=== PATIENT | male | born 1955 | race Caucasian/White ===

== ENCOUNTER 2022-04-22 22:49 | Emergency (ER) | payer MEDICARE, SELFPAY ==
--- NOTE | ~2022-04-22 | CT_ITS ---
EXAMINATION: CT abdomen pelvis wo con DATE: 04/22/2022 23:45 INDICATION: Right-sided flank pain TECHNIQUE: Computed tomography (CT) of the abdomen and pelvis was performed without intravenous contr ast. The dose-length product was 1280.40 mGy-cm. Automated exposure control and iterative reconstruct ion technique were employed. COMPARISON: CT dated 07/01/2017 FINDINGS: Bibasilar dependent atelectasis. Large hiatal hernia. Heart size normal. There are calcifie d granulomas of the liver and spleen. The pancreas, adrenal glands are unremarkable. There are nonobs tructing bilateral renal stones. No ureteral stones or hydronephrosis. Nonobstructive bowel gas patte rn. Gallbladder is present. Normal appendix. No significant vascular abnormality. No lymphadenopathy. Gallbladder is present. No free air or free fluid. Colonic diverticulosis without evidence for diver ticulitis. IMPRESSION: 1. Nonobstructing bilateral nephrolithiasis. 2: Large hiatal hernia. Reviewed, dictated and finalized at location D.
[2022-04-22 22:52] VITALS: BP 134/79; PULSE 89; RESP 16; TEMP 36.3; O2SAT 98
[2022-04-22 23:11] VITALS: BP 157/68; PULSE 84; RESP 20; O2SAT 98
--- NOTE | 2022-04-22 23:27 | ED.ABDPAIN ---
HPI - Abdominal Pain General Chief Complaint: Abdominal Pain <ANANT Clarke Last Filed: 04/23/22 02:52> Stated Complaint: flank pain <Albania Hernadez PA-C - Last Filed: 04/23/22 02:52> Time Seen by Provider: 04/22/22 23:03 <ANANT Clarke Last Filed: 04/23/22 02:52> History of Present Illness HPI narrative: Patient is a 66-year-old male with a history of CKD and nephrolithiasis here for evaluation of right-sided low back pain for the past 6 weeks, worse over the past 2 days. He states the pain came on while he was at rest, is worse with positions, and is located in his right low back and does not radiate. States he has been working outside in the yard a lot. Denies relief after ibuprofen; he has not been taking this today but was told he is not supposed to take this due to his CKD. Reports some nausea today but no vomiting or abdominal pain. No changes to stools. Denies urinary symptoms, incontinence or retention of bowel or bladder, hematuria, fevers, chills, known injury to back. <ANANT Clarke Last Filed: 04/23/22 02:52> Related Data Home Medications: Home Medications Medication Instructions Recorded Confirmed alprazolam 0.5 mg tablet (Xanax) 0.5 mg PO DAILY 10/06/19 buspirone 10 mg tablet 10 mg PO BID 10/06/19 cholecalciferol (vitamin D3) 25 1,000 unit PO DAILY 10/06/19 mcg (1,000 unit) capsule fluoxetine 20 mg capsule (Prozac) 20 mg PO DAILY 10/06/19 fluticasone propionate 50 1 spray intranasal DAILY 10/06/19 mcg/actuation nasal spray,suspension (Flonase Allergy Relief) loratadine 10 mg tablet (Claritin) 10 mg PO DAILY 10/06/19 mirtazapine 15 mg tablet (Remeron) 15 mg PO DAILY 10/06/19 rabeprazole 20 mg tablet,delayed 20 mg PO DAILY 10/06/19 release (AcipHex) zolpidem 10 mg tablet (Ambien) 10 mg PO ONCE 10/06/19 <[place] Hernadez PA-C - Last Filed: 04/23/22 02:52> Allergies/Adverse Reactions: Allergies Allergy/AdvReac Type Severity Reaction Status Date / Time cefuroxime Allergy Unknown Unknown Verified 04/22/22 22:56 METOCLOPRAMIDE HCL Allergy Intermediate ANXIOUS Uncoded 04/22/22 22:56 CEFUROXIME AXETIL AdvReac Severe NAUSEA, Uncoded 04/22/22 22:56 DIARHEA <Albania Hernadez PA-C - Last Filed: 04/23/22 02:52> Review of Systems Review of Systems: Gen: Denies fevers or chills Eyes: Denies eye pain or visual change ENT: Denies congestion Respiratory: Denies shortness of breath or cough CV: Denies chest pain or palpitations GI: Reports nausea. Denies abdominal pain, emesis or diarrhea : denies burning, urgency, frequency or hematuria Musculoskeletal: Reports back pain. Neuro: Denies numbness, tingling, weakness or focal weakness Skin: Denies rash Except as documented, all other systems reviewed and negative <Al[place]ia Hernadez PA-C - Last Filed: 04/23/22 02:52> [facility] Past Medical History Medical History: Medical History Acute pain of left knee Anemia, unspecified Arm paresthesia, right Burning sensation of feet Chronic GERD Chronic kidney disease, stage III (moderate) Dependence on other enabling machines and devices Dietary counseling and surveillance (10/16/17) Elevated blood-pressure reading without diagnosis of hypertension Enlarged prostate with lower urinary tract symptoms (LUTS) Essential hypertension Family history of colon cancer LONNY (generalized anxiety disorder) Hiatal hernia History of kidney stones Hy 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 Hyperlipidemia Hypogonadism in male Itching Left knee tendonitis Localized osteoarthritis of left knee Low TSH level Memory difficulties Mid back pain Mild episode of recurrent major depressive disorder Need for hepatitis C screening test Neuropathy involving both lower extremities Numbness OAB (overactive bladder) Obesity (BMI 30.0-34.9) Polyosteoarthritis, unspecif
[2022-04-22] MEDS: ONDANSETRON INJ 4 MG/2 ML VIAL IV PUSH (23:31)
[2022-04-22 23:40] LABS: Basophils Absolute Auto 0.1 K/mm3 (0.0-0.1); Basophils Percent Auto 0.8 % (0.2-1.2); Eosinophils Absolute Auto 0.3 K/mm3 (0-0.3); Eosinophils Percent Auto 4.2 % (0-4.4); Hematocrit 40.7 % (42.0-52.0); Hemoglobin 13.2 g/dL (14.0-18.0); Immature Granulocyte Absolute 0.02 K/mm3 (0.00-0.031); Immature Granulocyte Percent A 0.3 % (0-0.5); Lymphocytes Absolute Auto 1.91 K/mm3 (0.9-3.2); Lymphocytes Percent Auto 28.9 % (18.3-44.2); Mean Corpuscular HGB Conc 32.4 g/dl (32-36); Mean Corpuscular Hemoglobin 30.7 pg (26-34); Mean Corpuscular Volume 94.7 fl (80-100); Mean Platelet Volume 9.9 fl (7.4-10.4); Monocytes Absolute Auto 0.6 K/mm3 (0.1-0.6); Monocytes Percent Auto 9.1 % (2.6-8.5); Neutrophils Absolute Auto 3.8 K/mm3 (1.3-6.7); Neutrophils Percent Auto 56.7 % (45.5-73.1); Platelet Count Result 159 k/mm3 (150-375); White Blood Count 6.6 K/mm3 (4.5-10.0)
[2022-04-22 23:56] LABS: Alanine Aminotransferase 19 U/L (6-50); Albumin Level 3.8 g/dL (3.5-5.1); Alkaline Phosphatase 48 U/L (38-126); Anion Gap 4 mmol/L (8-16); Aspartate Amino Transferase 21 U/L (17-59); Bilirubin,Total 0.3 mg/dL (0.2-1.3); Blood Urea Nitrogen 25 mg/dL (9-20); Calcium 8.6 mg/dL (8.4-10.2); Carbon Dioxide 26 mmol/L (22-30); Chloride 109 mmol/L (98-107); Estimated CRCL calculation 40 ml/min; Estimated Glomerular Filt Rate 34; Glucose 139 mg/dL (65-110); Potassium 4.1 mmol/L (3.4-5.0); Sodium 139 mmol/L (137-145)
[2022-04-23] MEDS: ACETAMINOPHEN 500 MG TABLET 1000 MG PO (00:08)
[2022-04-23] MEDS: SODIUM CHLORIDE 0.9% IV 1,000 ML 999 ML IV CONT (00:08)
[2022-04-23] MEDS: LIDOCAINE 5% PATCH 1 PATCH TRANSDERM (00:13)
[2022-04-23 00:57] LABS: Appearance Urine Clear (Clear); Bilirubin Urine Negative (Negative); Blood Urine Negative (Negative); Color Urine Yellow (Yellow); Glucose Urine UA Negative (Negative); Ketones Urine Trace mg/dL (Negative); Leukocyte Esterase Ur Negative LEU/UL (Negative); Nitrate Urine Negative (Negative); Protein Urine Negative (Negative); Specific Grav Ur >= 1.030 (1.001-1.035); Urobilinogen Urine 0.2 mg/dL (<2.0); pH Urine 5.5 (5.0-9.0)
[2022-04-23 00:59] LABS: Mucus Urine Rare /lpf; RBC Urine 0-2 /hpf (0-2); WBC Urine 0-3 /hpf
[2022-04-23 01:00] LABS: Add Urine Microscopic? YES
[2022-04-23 01:35] VITALS: BP 139/84; PULSE 82; RESP 16; O2SAT 98
== END 2022-04-23 01:43 | disposition home or self-care (01) ==
PROVIDERS: Physician Assistant; Emergency Provider Emergency Medicine
DX: M54.50 Low back pain, unspecified (principal); K57.30 Diverticulosis of large intestine without perforation or abscess without bleeding; D64.9 Anemia, unspecified; K21.9 Gastro-esophageal reflux disease without esophagitis; I12.9 Hypertensive chronic kidney disease with stage 1 through stage 4 chronic kidney disease, or unspecified chronic kidney disease; N18.30 Chronic kidney disease, stage 3 unspecified; F41.9 Anxiety disorder, unspecified; Z87.442 Personal history of urinary calculi; M19.90 Unspecified osteoarthritis, unspecified site; G62.9 Polyneuropathy, unspecified
CPT/HCPCS: 36415; 74176; 80053; 81001; 85025; 96361; 96374; 99284; A9270; J2405; J7030

== ENCOUNTER 2022-05-02 10:07 | Outpatient (CLI) | payer MEDICARE, SELFPAY ==
[2022-05-02 10:51] LABS: Anion Gap 6 mmol/L (8-16); Blood Urea Nitrogen 22 mg/dL (9-20); Calcium 9.3 mg/dL (8.4-10.2); Carbon Dioxide 28 mmol/L (22-30); Chloride 104 mmol/L (98-107); Estimated Glomerular Filt Rate 51; Glucose 111 mg/dL (65-110); Potassium 4.6 mmol/L (3.4-5.0); Sodium 138 mmol/L (137-145)
== END 2022-05-02 10:08 | disposition home or self-care (01) ==
PROVIDERS: PCP Family Medicine; Visit Provider Physician Assistant
DX: N18.9 Chronic kidney disease, unspecified (principal)
CPT/HCPCS: 36415; 80048

== ENCOUNTER 2022-10-25 07:21 | Outpatient (CLI) | payer MEDICARE, SELFPAY ==
[2022-10-25 09:03] LABS: Prostate Specific Antigen 1.1 ng/mL (< OR = 4.0)
[2022-10-30 17:28] LABS: Testosterone Free 54.7 pg/mL (35.0-155.0); Testosterone Total 243 ng/dL (250-1100)
== END 2022-10-25 07:22 | disposition home or self-care (01) ==
PROVIDERS: PCP Family Medicine; Visit Provider Family Medicine
DX: R35.1 Nocturia (principal); R79.89 Other specified abnormal findings of blood chemistry
CPT/HCPCS: 36415; 84153; 84402; 84403

== ENCOUNTER 2022-12-27 08:11 | Outpatient (CLI) | payer MEDICARE, SELFPAY ==
[2022-12-27 09:31] LABS: Basophils Percent Auto 0.6 % (0.2-1.2); Eosinophils Absolute Auto 0.3 K/mm3 (0-0.3); Eosinophils Percent Auto 4.1 % (0-4.4); Hematocrit 46.4 % (42.0-52.0); Hemoglobin 15.5 g/dL (14.0-18.0); Immature Granulocyte Absolute 0.02 K/mm3 (0.00-0.031); Immature Granulocyte Percent A 0.3 % (0-0.5); Lymphocytes Absolute Auto 2.02 K/mm3 (0.9-3.2); Lymphocytes Percent Auto 31.5 % (18.3-44.2); Mean Corpuscular HGB Conc 33.4 g/dl (32-36); Mean Corpuscular Hemoglobin 31.6 pg (26-34); Mean Corpuscular Volume 94.5 fl (80-100); Monocytes Absolute Auto 0.5 K/mm3 (0.1-0.6); Monocytes Percent Auto 8.1 % (2.6-8.5); Neutrophils Absolute Auto 3.6 K/mm3 (1.3-6.7); Neutrophils Percent Auto 55.4 % (45.5-73.1); Platelet Count Result 174 k/mm3 (150-375); Red Blood Count 4.91 M/mm3 (4.6-6.20); Red Cell Distribution Width 13.8 % (11.5-14.5); White Blood Count 6.4 K/mm3 (4.5-10.0)
[2022-12-27 09:41] LABS: Alanine Aminotransferase 29 U/L (6-50); Albumin Level 4.6 g/dL (3.5-5.1); Alkaline Phosphatase 59 U/L (38-126); Anion Gap 4 mmol/L (8-16); Aspartate Amino Transferase 24 U/L (17-59); Bilirubin,Total 0.7 mg/dL (0.2-1.3); Blood Urea Nitrogen 23 mg/dL (9-20); Calcium 9.2 mg/dL (8.4-10.2); Carbon Dioxide 28 mmol/L (22-30); Chloride 101 mmol/L (98-107); Cholesterol 187 mg/dL (0-200); Estimated Glomerular Filt Rate 41; Glucose 99 mg/dL (65-110); HDL Direct 49 mg/dL; Potassium 4.2 mmol/L (3.4-5.0); Sodium 133 mmol/L (137-145); Triglycerides 99 mg/dL (<150)
[2022-12-27 09:43] LABS: Appearance Urine Clear (Clear); Bilirubin Urine Negative (Negative); Blood Urine Negative (Negative); Color Urine Yellow (Yellow); Glucose Urine UA Negative (Negative); Ketones Urine Negative (Negative); Leukocyte Esterase Ur Negative LEU/UL (NEGATIVE); Nitrate Urine Negative (Negative); Protein Urine Negative (Negative); Specific Grav Ur 1.025 (1.001-1.035); Urobilinogen Urine 0.2 mg/dL (<2.0)
[2022-12-27 09:53] LABS: LDL Cholesterol Direct 98 mg/dL
[2022-12-27 10:22] LABS: Add Urine Microscopic? NO
[2023-01-02 11:00] LABS: Testosterone Total 259 ng/dL (250-1100)
== END 2022-12-27 08:12 | disposition home or self-care (01) ==
LOC: ANHLAB 08:12
PROVIDERS: PCP Family Medicine; Visit Provider Physician Assistant
DX: R68.83 Chills (without fever) (principal); R61 Generalized hyperhidrosis; R23.2 Flushing; R79.89 Other specified abnormal findings of blood chemistry; N18.9 Chronic kidney disease, unspecified; F51.04 Psychophysiologic insomnia; J31.0 Chronic rhinitis; R53.83 Other fatigue; G47.33 Obstructive sleep apnea (adult) (pediatric); Z99.89 Dependence on other enabling machines and devices
CPT/HCPCS: 36415; 80053; 80061; 81003; 84403; 84443; 85025

== ENCOUNTER 2023-04-13 18:36 | Emergency (ER) | payer MEDICARE, SELFPAY ==
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
[2023-04-13 18:39] VITALS: BP 133/79; PULSE 90; RESP 16; TEMP 36.6; O2SAT 98
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
--- NOTE | 2023-04-13 19:31 | PC.NURSE ---
1909 Assumed pt care from Phyllis Wilson RN
[2023-04-13] MEDS: ACETAMINOPHEN 500 MG TABLET 1000 MG PO (19:44)
[2023-04-13] MEDS: traMADol HCL (*CRX) 50 MG TABLET PO (20:36)
== END 2023-04-13 22:36 | disposition home or self-care (01) ==
PROVIDERS: Emergency Provider General Practice; PCP Family Medicine
DX: S02.2XXA Fracture of nasal bones, initial encounter for closed fracture (principal); I12.9 Hypertensive chronic kidney disease with stage 1 through stage 4 chronic kidney disease, or unspecified chronic kidney disease; N18.30 Chronic kidney disease, stage 3 unspecified; N40.1 Benign prostatic hyperplasia with lower urinary tract symptoms; N32.81 Overactive bladder; E78.00 Pure hypercholesterolemia, unspecified; M17.12 Unilateral primary osteoarthritis, left knee; E66.9 Obesity, unspecified; Z68.34 Body mass index [BMI] 34.0-34.9, adult; F41.1 Generalized anxiety disorder; F33.9 Major depressive disorder, recurrent, unspecified; Z86.2 Personal history of diseases of the blood and blood-forming organs and certain disorders involving the immune mechanism; Z87.442 Personal history of urinary calculi; Z87.891 Personal history of nicotine dependence; M47.812 Spondylosis without myelopathy or radiculopathy, cervical region; W20.8XXA Other cause of strike by thrown, projected or falling object, initial encounter
CPT/HCPCS: 70450; 70486; 72125; 99284; A9270

== ENCOUNTER 2023-07-14 10:23 | Emergency (ER) | payer MEDICARE, SELFPAY ==
--- NOTE | ~2023-07-14 | CT_ITS ---
EXAMINATION: CT abdomen pelvis w con DATE: 07/14/2023 12:46 INDICATION: Left lower quadrant abdominal pain. TECHNIQUE: Computed tomography (CT) of the abdomen and pelvis was performed with 100 mL Omnipaque-350 intravenous contrast. Automated exposure control and iterative reconstruction technique were employe d. The dose-length product was 1206.94 mGy-cm. COMPARISON: 04/22/2022 FINDINGS: Mild atelectasis in the bilateral lower lobes along the margins of a moderate-sized sliding-type hiat al hernia. Calcified right hilar lymph nodes along with a few small calcified hepatic and splenic nod ules consistent with old granulomatous disease. Heart size is normal. Gallbladder and bilateral adren al glands are normal. Punctate dystrophic calcification at the tail the pancreas, likely sequela of c hronic pancreatitis. 1 cm cysts at the upper pole the right kidney and lower pole the left kidney. Bi lateral nonobstructing nephrolithiasis with single 2 mm stone at the upper pole of the right kidney a nd 1 mm and 2 mm stones at an upper pole calyx of the left kidney. No hydronephrosis. There is modera te colonic diverticulosis with a sigmoid and descending colon predominance. There is no adjacent infl ammatory change to suggest diverticulitis. Small bowel and appendix are normal. Bladder is normal. No free intraperitoneal gas or fluid. No pathologically enlarged abdominal or pelvic lymphadenopathy. T here are bridging osteophytes at multiple levels in the spine, consistent with diffuse idiopathic ske letal hyperostosis (DISH). IMPRESSION: 1. Nonobstructing bilateral nephrolithiasis. 2. Moderate-sized hiatal hernia. 3. Diverticulosis. Reviewed, dictated and finalized at location A.
--- NOTE | ~2023-07-14 | US_ITS ---
EXAMINATION: US abdomen limited DATE: 07/14/2023 14:14 INDICATION: Abnormal liver function tests. TECHNIQUE: Multiple grayscale and Doppler ultrasound images of the abdomen were obtained. COMPARISON: CT abdomen and pelvis 07/14/2023 FINDINGS: The pancreas is obscured by bowel gas. The liver is normal without focal lesion. No liver s urface nodularity. There is normal flow in main portal vein. The gallbladder is contracted. No gallst ones or sonographic Juarez sign. The common duct is normal and measures 4 mm. IMPRESSION: 1. No etiology for abnormal liver function tests. Reviewed, dictated and finalized at location E.
[2023-07-14 11:05] VITALS: BP 130/98; PULSE 95; RESP 16; TEMP 37.1; O2SAT 98
[2023-07-14 11:06] VITALS: BP 151/101; PULSE 78; RESP 16; O2SAT 96
[2023-07-14 11:12] LABS: Basophils Absolute Auto 0.1 K/mm3 (0.0-0.1); Basophils Percent Auto 0.7 % (0.2-1.2); Eosinophils Absolute Auto 0.5 K/mm3 (0-0.3); Eosinophils Percent Auto 6.6 % (0-4.4); Hematocrit 48.5 % (42.0-52.0); Hemoglobin 15.7 g/dL (14.0-18.0); Immature Granulocyte Absolute 0.03 K/mm3 (0.00-0.031); Immature Granulocyte Percent A 0.4 % (0-0.5); Immature Platelet Fraction Pct 4.7 % (0.9-11.2); Lymphocytes Absolute Auto 1.27 K/mm3 (0.9-3.2); Lymphocytes Percent Auto 17.9 % (18.3-44.2); Mean Corpuscular HGB Conc 32.4 g/dl (32-36); Mean Corpuscular Volume 95.7 fl (80-100); Mean Platelet Volume 10.2 fl (7.4-10.4); Monocytes Absolute Auto 0.5 K/mm3 (0.1-0.6); Monocytes Percent Auto 7.5 % (2.6-8.5); Neutrophils Absolute Auto 4.8 K/mm3 (1.3-6.7); Neutrophils Percent Auto 66.9 % (45.5-73.1); Platelet Count Result 138 k/mm3 (150-375); Red Blood Count 5.07 M/mm3 (4.6-6.20); Red Cell Distribution Width 14.9 % (11.5-14.5); White Blood Count 7.1 K/mm3 (4.5-10.0)
[2023-07-14 11:21] LABS: Alanine Aminotransferase 645 U/L (6-50); Albumin Level 4.5 g/dL (3.5-5.1); Alkaline Phosphatase 119 U/L (38-126); Anion Gap 7 mmol/L (8-16); Aspartate Amino Transferase 301 U/L (17-59); Bilirubin,Total 5.4 mg/dL (0.2-1.3); Blood Urea Nitrogen 17 mg/dL (9-20); Calcium 9.3 mg/dL (8.4-10.2); Carbon Dioxide 26 mmol/L (22-30); Chloride 103 mmol/L (98-107); Estimated Glomerular Filt Rate 51; Glucose 137 mg/dL (65-110); Lipase 93 U/L (23-300); Sodium 136 mmol/L (137-145)
[2023-07-14 11:33] VITALS: BP 163/95; PULSE 80; RESP 16; TEMP 36.8; O2SAT 98
--- NOTE | 2023-07-14 11:38 | ED.ABDPAIN ---
HPI - Abdominal Pain General Chief Complaint: Abdominal Pain Stated Complaint: pt states unwell all over, nausea, L abd pain Time Seen by Provider: 07/14/23 11:23 History of Present Illness HPI narrative: Pt presents with intermittent LLQ abdominal pain for 3 months mostly after eating. Pt also was recently treated for sinus infection with augmentin and prednisone. Pt complains of itchy skin and feeling dry and had abnormal tsh from outpatient labs. Related Data Home Medications Medication Instructions Recorded Confirmed cholecalciferol (vitamin D3) 25 1,000 unit PO DAILY 10/06/19 07/01/23 mcg (1,000 unit) capsule cetirizine 10 mg capsule (All Day 10 mg PO DAILY PRN 04/26/22 07/01/23 Allergy (cetirizine)) cyclosporine 0.05 % eye drops in a 1 drp EACH EYE Q12H 04/26/22 07/01/23 dropperette Allergies Allergy/AdvReac Type Severity Reaction Status Date / Time cefuroxime Allergy Unknown Unknown Verified 07/01/23 11:03 metoclopramide [From Reglan] AdvReac Unknown Verified 07/01/23 11:03 METOCLOPRAMIDE HCL Allergy Intermediate ANXIOUS Uncoded 07/01/23 11:03 CEFUROXIME AXETIL AdvReac Severe NAUSEA, Uncoded 07/01/23 11:03 DIARHEA Review of Systems Review of Systems: All systems reviewed & are unremarkable except as noted in HPI and below PMFSH Past Medical History Medical History Acute pain of left knee Anemia, unspecified Arm paresthesia, right Burning sensation of feet Chronic GERD Chronic kidney disease, stage III (moderate) Dependence on other enabling machines and devices Dietary counseling and surveillance (10/16/17) Elevated blood-pressure reading without diagnosis of hypertension Enlarged prostate with lower urinary tract symptoms (LUTS) Essential hypertension Family history of colon cancer LONNY (generalized anxiety disorder) Hiatal hernia History of kidney stones Hy 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 Hyperlipidemia Hypogonadism in male Itching Left knee tendonitis Localized osteoarthritis of left knee Low TSH level Memory difficulties Mid back pain Mild episode of recurrent major depressive disorder Need for hepatitis C screening test Neuropathy involving both lower extremities Numbness OAB (overactive bladder) Obesity (BMI 30.0-34.9) Polyosteoarthritis, unspecified Post-nasal drip Pre-op exam Primary osteoarthritis of left knee Pure hypercholesterolemia Right-sided low back pain without sciatica Tendonitis of left rotator cuff URI, acute Varicose veins of both lower extremities Wellness examination Family History Family History Mother Family history of muscular dystrophy Father Carcinoma of colon Sibling Family history of diabetes mellitus in first degree relative Family history of coronary artery disease Other Diabetes mellitus Hypertension Social History Social History Smoking status: Former smoker Smoking end date: 11/17/77 Alcohol intake: never Exam Const: General: healthy appearing Nutritional Appearance: well nourished Orientation/consciousness: patient oriented x3 Limitations: no limitations Eyes: Pupils: Equal, round and reactive pupils present EOM: EOMs intact bilaterally Neck: Neck: normal visual inspection Chest: Chest palpation & inspection: normal inspection of the chest Resp: Effort & Inspection: normal respiratory effort Auscultation: clear to auscultation bilaterally Cardio: Rate: regular rate Rhythm: regular rhythm GI: GI Palp: Yes Soft to palpation and Yes Tenderness to palpation present (GI) (mild llq) Auscultation: normal bowel sounds Skin: General skin exam: normal color Rashes: no rashes Wounds: no wounds Neuro: General: patient oriented x3, moves all extremities, no meningeal signs, no focal motor deficits and CN's II-XI intact bilaterally Cranial nerves: Yes
[2023-07-14] MEDS: SODIUM CHLORIDE 0.9% IV 1,000 ML 999 ML IV CONT (11:57)
[2023-07-14 12:14] LABS: Prothrombin Time 13.1 Seconds (11.1-14.7)
[2023-07-14 13:03] LABS: Appearance Urine Clear (Clear); Bilirubin Urine 1+ (Negative); Blood Urine Negative (Negative); Color Urine Dark Yellow (Yellow); Glucose Urine UA Negative (Negative); Ketones Urine Negative (Negative); Leukocyte Esterase Ur Negative LEU/UL (Negative); Nitrate Urine Negative (Negative); Protein Urine Negative (Negative); Specific Grav Ur 1.034 (1.001-1.035); pH Urine 6.5 (5.0-9.0)
[2023-07-14 13:18] LABS: Add Urine Microscopic? NO
[2023-07-14] MEDS: ONDANSETRON INJ 4 MG/2 ML VIAL IV PUSH (13:27)
[2023-07-14 13:30] VITALS: BP 150/78; BP 154/88; PULSE 76; PULSE 90; RESP 16; O2SAT 98
[2023-07-14 14:30] VITALS: BP 152/90; PULSE 90; RESP 16; TEMP 36.6; O2SAT 98
[2023-07-14 15:15] VITALS: BP 154/88; PULSE 88; RESP 16; TEMP 36.7; O2SAT 98
== END 2023-07-14 15:38 | disposition home or self-care (01) ==
PROVIDERS: Physician Assistant; Emergency Provider Emergency Medicine; PCP Family Medicine
DX: R74.01 Elevation of levels of liver transaminase levels (principal); I12.9 Hypertensive chronic kidney disease with stage 1 through stage 4 chronic kidney disease, or unspecified chronic kidney disease; N18.30 Chronic kidney disease, stage 3 unspecified; E78.5 Hyperlipidemia, unspecified; Z87.891 Personal history of nicotine dependence
CPT/HCPCS: 36415; 74177; 76705; 80053; 81003; 83690; 84443; 85025; 85055; 85610; 96361; 96374; 99284; J2405; J7030; Q9967

== ENCOUNTER 2023-07-17 14:08 | Outpatient (CLI) | payer MEDICARE, SELFPAY ==
[2023-07-17 15:14] LABS: Basophils Absolute Auto 0.1 K/mm3 (0.0-0.1); Basophils Percent Auto 0.8 % (0.2-1.2); Eosinophils Absolute Auto 0.5 K/mm3 (0-0.3); Eosinophils Percent Auto 7.9 % (0-4.4); Hematocrit 45.4 % (42.0-52.0); Hemoglobin 14.8 g/dL (14.0-18.0); Immature Granulocyte Absolute 0.04 K/mm3 (0.00-0.031); Immature Granulocyte Percent A 0.6 % (0-0.5); Immature Reticulocyte Fraction 20.7 % (3.0-15.9); Lymphocytes Absolute Auto 1.46 K/mm3 (0.9-3.2); Lymphocytes Percent Auto 23.4 % (18.3-44.2); Mean Corpuscular HGB Conc 32.6 g/dl (32-36); Mean Corpuscular Hemoglobin 31.2 pg (26-34); Mean Corpuscular Volume 95.8 fl (80-100); Mean Platelet Volume 10.5 fl (7.4-10.4); Monocytes Absolute Auto 0.7 K/mm3 (0.1-0.6); Monocytes Percent Auto 10.6 % (2.6-8.5); Neutrophils Absolute Auto 3.5 K/mm3 (1.3-6.7); Neutrophils Percent Auto 56.7 % (45.5-73.1); Platelet Count Result 138 k/mm3 (150-375); Red Blood Count 4.74 M/mm3 (4.6-6.20); Red Cell Distribution Width 15.6 % (11.5-14.5); Reticulocyte Hemoglobin Conten 34.1 pg (28.2-35.7); Reticulocyte Percent 1.69 % (0.7-4.3); Reticulocytes Absolute 0.08 M/mm3 (0.02-0.1); White Blood Count 6.2 K/mm3 (4.5-10.0)
[2023-07-17 16:20] LABS: Hepatitis B Surface Antigen Negative (Negative)
[2023-07-17 16:25] LABS: HAV RESULT Negative (Negative); Hepatitis B Core IgM Result Negative (Negative)
[2023-07-17 16:37] LABS: Hepatitis C Virus Antibody Negative (Negative)
[2023-07-17 17:09] LABS: Iron 139 ug/dL (49-181)
[2023-07-17 17:11] LABS: Alanine Aminotransferase 623 U/L (6-50); Albumin Level 4.2 g/dL (3.5-5.1); Alkaline Phosphatase 125 U/L (38-126); Anion Gap 5 mmol/L (8-16); Aspartate Amino Transferase 317 U/L (17-59); Bilirubin Direct 2.7 mg/dL (0-0.3); Bilirubin,Total 6.9 mg/dL (0.2-1.3); Blood Urea Nitrogen 18 mg/dL (9-20); Calcium 9.2 mg/dL (8.4-10.2); Carbon Dioxide 31 mmol/L (22-30); Chloride 102 mmol/L (98-107); Estimated Glomerular Filt Rate 47; Glucose 103 mg/dL (65-110); Lactate Dehydrogenase 332 U/L (120-246); Sodium 138 mmol/L (137-145)
[2023-07-17 17:21] LABS: Percent Iron Saturation 42 % (20-50)
[2023-07-22 10:10] LABS: Haptoglobin 124 mg/dL (43-212)
== END 2023-07-17 14:09 | disposition home or self-care (01) ==
PROVIDERS: PCP Family Medicine; Visit Provider Physician Assistant
DX: R17 Unspecified jaundice (principal); R79.89 Other specified abnormal findings of blood chemistry
CPT/HCPCS: 36415; 80048; 80074; 80076; 82728; 83010; 83540; 83550; 83615; 85025; 85046; 85055; 86038; 86039

== ENCOUNTER 2023-07-31 15:09 | Outpatient (CLI) | payer MEDICARE, SELFPAY ==
[2023-07-31 16:58] LABS: Alanine Aminotransferase 190 U/L (6-50); Albumin Level 4.1 g/dL (3.5-5.1); Alkaline Phosphatase 97 U/L (38-126); Anion Gap 8 mmol/L (8-16); Aspartate Amino Transferase 73 U/L (17-59); Bilirubin,Total 1.3 mg/dL (0.2-1.3); Blood Urea Nitrogen 25 mg/dL (9-20); Calcium 9.3 mg/dL (8.4-10.2); Carbon Dioxide 25 mmol/L (22-30); Chloride 107 mmol/L (98-107); Estimated Glomerular Filt Rate 47; Glucose 129 mg/dL (65-110); Potassium 4.5 mmol/L (3.4-5.0); Sodium 140 mmol/L (137-145)
== END 2023-07-31 15:10 | disposition home or self-care (01) ==
PROVIDERS: PCP Family Medicine; Visit Provider Physician Assistant
DX: R79.89 Other specified abnormal findings of blood chemistry (principal)
CPT/HCPCS: 36415; 80048; 80076

== ENCOUNTER 2023-08-29 09:13 | Outpatient (CLI) | payer MEDICARE, SELFPAY ==
[2023-08-29 10:03] LABS: Alanine Aminotransferase 36 U/L (6-50); Albumin Level 4.2 g/dL (3.5-5.1); Alkaline Phosphatase 53 U/L (38-126); Anion Gap 6 mmol/L (8-16); Aspartate Amino Transferase 30 U/L (17-59); Bilirubin,Total 0.8 mg/dL (0.2-1.3); Blood Urea Nitrogen 20 mg/dL (9-20); Calcium 9.2 mg/dL (8.4-10.2); Carbon Dioxide 27 mmol/L (22-30); Chloride 105 mmol/L (98-107); Estimated Glomerular Filt Rate 47; Glucose 135 mg/dL (65-110); Potassium 3.8 mmol/L (3.4-5.0); Sodium 138 mmol/L (137-145)
== END 2023-08-29 09:14 | disposition home or self-care (01) ==
LOC: ANHLAB 09:14
PROVIDERS: PCP Family Medicine; Visit Provider Physician Assistant
DX: R74.01 Elevation of levels of liver transaminase levels (principal)
CPT/HCPCS: 36415; 80053

== ENCOUNTER → 2023-11-14 14:57 | Outpatient (CLI) | payer MEDICARE, SELFPAY ==
--- NOTE | ~2023-11-14 | XR_ITS ---
EXAMINATION: XR clavicle LT INDICATION: Left shoulder pain TECHNIQUE: Two views of the left shoulder are obtained. COMPARISON: None available FINDINGS: Bone alignment is normal. There is no fracture. There is mild osteoarthritis of the acromio clavicular and glenohumeral joints. IMPRESSION: 1. No acute osseous abnormality. Reviewed, dictated and finalized at location B. DESIGNER
== END ==
PROVIDERS: PCP Family Medicine; Visit Provider Physician Assistant
DX: M89.8X1 Other specified disorders of bone, shoulder (principal)
CPT/HCPCS: 73000

== ENCOUNTER 2023-12-22 12:08 | Outpatient (CLI) | payer MEDICARE, SELFPAY ==
--- NOTE | ~2023-12-22 | CT_ITS ---
EXAMINATION: CT abdomen pelvis w con DATE: 12/22/2023 12:33 INDICATION: Diarrhea, unspecified. TECHNIQUE: Computed tomography (CT) of the abdomen and pelvis was performed with 100 mL Omnipaque 350 intravenous contrast. Automated exposure control and iterative reconstruction technique were employe d. The dose-length product was 1200.05 mGy-cm. COMPARISON: CT abdomen and pelvis 07/14/2023 FINDINGS: The visualized portions of the lung bases demonstrate mild atelectasis. No pleural effusion . The heart size is normal. No pericardial effusion. There is a moderate-sized sliding hiatal hernia. There are likely changes of fundoplication of the stomach. The liver, gallbladder, and pancreas are normal. Calcifications in the spleen are consistent with old granulomatous disease. The adrenal gland s are normal. There is cortical thinning of the kidneys. There is an 11 mm cyst in right kidney. Ther e is a 3 mm stone in right kidney. There are 3 stones in left kidney measuring up to 3 mm. There is a 12 mm cyst in left kidney. There is diverticulosis of the colon without evidence of diverticulitis. There are no dilated loops of bowel. The appendix is normal. There are no pathologically enlarged lym ph nodes. There is no free intraperitoneal fluid. There is moderate lumbar spondylosis. There are alexandru dging endplate osteophytes at multiple levels in the spine, consistent with diffuse idiopathic skelet al hyperostosis (DISH). IMPRESSION: 1. Moderate-sized sliding hiatal hernia. Likely changes of fundoplication of the stomach. Reviewed, dictated and finalized at location E. IC ADDRESS SYSTEM OPERATOR IMPRESSION: 1. Moderate-sized sliding hiatal hernia. Likely changes of fundoplication of th e stomach.
[2023-12-22 12:29] LABS: Estimated Glomerular Filt Rate 41
[2023-12-22 13:13] LABS: Basophils Percent Auto 0.5 % (0.2-1.2); Eosinophils Absolute Auto 0.2 K/mm3 (0-0.3); Eosinophils Percent Auto 2.8 % (0-4.4); Hematocrit 46.9 % (42.0-52.0); Hemoglobin 15.4 g/dL (14.0-18.0); Immature Granulocyte Absolute 0.02 K/mm3 (0.00-0.031); Immature Granulocyte Percent A 0.3 % (0-0.5); Lymphocytes Absolute Auto 1.64 K/mm3 (0.9-3.2); Lymphocytes Percent Auto 25.7 % (18.3-44.2); Mean Corpuscular HGB Conc 32.8 g/dl (32-36); Mean Corpuscular Hemoglobin 30.6 pg (26-34); Mean Corpuscular Volume 93.2 fl (80-100); Mean Platelet Volume 9.7 fl (7.4-10.4); Monocytes Absolute Auto 0.7 K/mm3 (0.1-0.6); Monocytes Percent Auto 11.3 % (2.6-8.5); Neutrophils Absolute Auto 3.8 K/mm3 (1.3-6.7); Neutrophils Percent Auto 59.4 % (45.5-73.1); Platelet Count Result 150 k/mm3 (150-375); Red Blood Count 5.03 M/mm3 (4.6-6.20); Red Cell Distribution Width 13.6 % (11.5-14.5); White Blood Count 6.4 K/mm3 (4.5-10.0)
[2023-12-22 13:28] LABS: Alanine Aminotransferase 23 U/L (6-50); Alkaline Phosphatase 46 U/L (38-126); Anion Gap 7 mmol/L (8-16); Aspartate Amino Transferase 20 U/L (17-59); Bilirubin,Total 0.8 mg/dL (0.2-1.3); Blood Urea Nitrogen 22 mg/dL (9-20); Calcium 9.5 mg/dL (8.4-10.2); Carbon Dioxide 26 mmol/L (22-30); Chloride 103 mmol/L (98-107); Estimated Glomerular Filt Rate 47; Glucose 79 mg/dL (65-110); Sodium 136 mmol/L (137-145)
== END 2023-12-22 12:09 | disposition home or self-care (01) ==
LOC: ANHIMG 12:12
PROVIDERS: PCP Family Medicine; Visit Provider Physician Assistant
DX: R19.7 Diarrhea, unspecified (principal); R10.32 Left lower quadrant pain; G47.33 Obstructive sleep apnea (adult) (pediatric); Z99.89 Dependence on other enabling machines and devices; K44.9 Diaphragmatic hernia without obstruction or gangrene
CPT/HCPCS: 74177; 80053; 85025; 87045; 87427; 87449; 89055; Q9967

== ENCOUNTER 2023-12-22 15:09 | Outpatient (CLI) | payer MEDICARE, SELFPAY | END 2023-12-22 15:10 | disposition home or self-care (01) | LOC: ANHLAB 15:11 | PROVIDERS: PCP Family Medicine; Visit Provider Physician Assistant | DX: R19.7 Diarrhea, unspecified (principal); R10.32 Left lower quadrant pain | CPT/HCPCS: 87045; 87427; 87449; 89055 ==

== ENCOUNTER 2024-01-28 08:30 | Outpatient (CLI) | payer MEDICARE, SELFPAY ==
--- NOTE | ~2024-01-28 | XR_ITS ---
EXAMINATION: XR barium swallow modified DATE: 01/28/2024 09:10 INDICATION: Oropharyngeal dysphagia. TECHNIQUE: The patient was given barium-containing material of multiple consistencies to swallow by t bill speech pathologist while I performed fluoroscopy. Fluoroscopy exposure time was 0.8 minutes. The n umber of fluoroscopy images saved to the PACS was 1. Dose-area product was 0.852 Gy-cm^2. FINDINGS: The oral stage, pharyngeal stage, and cervical/esophageal stage of the swallow are normal. IMPRESSION: 1. Normal modified barium swallow. 2. Please refer to the speech therapy report for recommendations. Reviewed, dictated and finalized at location A.
--- NOTE | 2024-01-28 10:06 | REHSTMBS ---
Assessment and note entered by Shayla Edwards, NATIONAL SALES CONSULTANT Modified Barium Swallow Evaluation Feeding Type Recommended Oral Food Consistency Regular, Level 7 Liquid Consistency Thin (0) ST Clinical Summary MODIFIED BARIUM SWALLOW Patient was seen for an outpatient Modified Barium Swallow study at the request of his care provider. Patient reports a history of victorino fundoplication in the ' secondary to reflux, and a current hiatal hernia. He stated that his swallowing feels different for the past two years, that he can hear and feel his swallow and he pointed to the left lower neck area. He denied coughing or choking when eating. Patient was viewed in the lateral position to the level of C5/C6. Patient was presented with uncontrolled thin liquid contrast medium per cup, pudding mixed with semi-solid contrast medium per spoon, and then cracker pieces and fruit pieces, both coated with the semi-solid mixture. Patient elicited quick swallows with no evidence of penetration or aspiration and no significant pharyngeal residue remaining in between or after the swallows. Results suggest the patient's swallowing skills are within normal limits. No further recommendations are made at this time other than patient is referred back to his doctor for further assessment of his complaints. Thank you for this referral.
== END 2024-01-28 08:31 | disposition home or self-care (01) ==
PROVIDERS: PCP Family Medicine; Visit Provider Nurse Practitioner Family
DX: R13.12 Dysphagia, oropharyngeal phase (principal)
CPT/HCPCS: 92611

== ENCOUNTER 2024-02-02 01:07 | Day surgery (SDC) | payer MEDICARE, SELFPAY ==
[2024-01-26 13:16] VITALS: BMI 34.7
--- NOTE | 2024-01-28 11:23 | SUR.PREOP ---
Patient called regarding upcoming procedure. Reviewed preop instructions, new appointment times, and procedure prep.
[2024-02-02 11:13] VITALS: BP 119/83; PULSE 90; RESP 18; TEMP 36.2; O2SAT 97
[2024-02-02] MEDS: LACTATED RINGERS 1,000 ML 150 ML IV CONT (11:25)
--- NOTE | 2024-02-02 12:05 | WPDANESEPPF ---
Anes - Initial Pre Proc Eval Procedure: Operation Date: 02/02/24 12:30 Proposed Procedures p Colonoscopy - Flo Conde MD Date/Time: 02/02/24 12:05 Surgeon: Flo Conde MD Pre Op Diagnosis: change in bowel habits,diarrhea Patient Data Age: 68 Gender: M Height: 1.73 m Weight: 101.9 kg Last Vital Signs Temp 97.2 F L 02/02/24 11:13 Pulse 90 02/02/24 11:13 Resp 18 02/02/24 11:13 BP 119/83 02/02/24 11:13 Pulse Ox 97 02/02/24 11:13 O2 Del Method Room Air 02/02/24 11:13 Allergies Allergy/AdvReac Type Severity Reaction Status Date / Time amoxicillin [From Augmentin] Allergy Intermediate Itching Verified 02/02/24 11:11 clavulanic acid Allergy Intermediate Itching Verified 02/02/24 11:11 [From Augmentin] metoclopramide [From Reglan] AdvReac Intermediate Agitated Verified 02/02/24 11:11 METOCLOPRAMIDE HCL Allergy Intermediate ANXIOUS Uncoded 02/02/24 11:11 CEFUROXIME AXETIL AdvReac Severe NAUSEA, Uncoded 02/02/24 11:11 DIARHEA Home Medications Medication Instructions Recorded Confirmed Type cholecalciferol (vitamin D3) 25 1,000 unit PO DAILY 10/06/19 01/26/24 History mcg (1,000 unit) capsule cetirizine 10 mg capsule (All Day 10 mg PO DAILY PRN ALLERGIES 04/26/22 01/26/24 History Allergy (cetirizine)) fluticasone propionate 50 2 spray intranasal DAILY #16 grams 06/28/22 01/26/24 Rx mcg/actuation nasal spray,suspension (Flonase Allergy Relief) ketoconazole 2 % shampoo 1 applic topical 2XW #120 mL 06/28/22 01/26/24 Rx testosterone (AndroGel) 3 pump topical DAILY #300 grams 08/01/23 01/26/24 Rx venlafaxine 75 mg capsule,extended 75 mg PO DAILY #90 caps 08/21/23 01/26/24 Rx release 24 hr omeprazole 40 mg capsule,delayed 40 mg PO DAILY #90 caps 08/28/23 01/26/24 Rx release buspirone 10 mg tablet 10 mg PO BID #180 tabs 09/25/23 01/26/24 Rx hydroxyzine HCl 50 mg tablet 50 mg PO QHS PRN anxiety or 11/14/23 01/26/24 Rx insomnia #90 tabs lisinopril 10 mg tablet See Rx Instructions .Route 12/03/23 01/26/24 Rx .COMPLEX #50 tabs pravastatin 40 mg tablet See Rx Instructions .Route 12/04/23 01/26/24 Rx .COMPLEX #100 tabs loperamide 2 mg capsule (Imodium 2 mg PO Q6H PRN loose stool #60 12/23/23 01/26/24 Rx A-D) caps vitamin B complex (B 1 tablet PO DAILY 01/12/24 01/26/24 History Complex-Vitamin B12 tablet) Patient hx anesthesia problems: none Family hx anesthesia problems: none Results Review: All pre-operative results and documents have been reviewed as part of the pre-operative evaluation. [facility] Past Medical History Medical History (Updated 01/13/24 @ 09:03 by Diandra Johnson, OPERATIONS SYSTEMS SPECIALIST-C) Acute pain of left knee Anemia, unspecified Arm paresthesia, right Burning sensation of feet Change in bowel habits Chronic GERD Chronic kidney disease, stage III (moderate) Dependence on other enabling machines and devices Diarrhea Dietary counseling and surveillance (10/16/17) Dysphagia, oropharyngeal Elevated blood-pressure reading without diagnosis of hypertension Enlarged prostate with lower urinary tract symptoms (LUTS) Essential hypertension Family history of colon cancer Family history of colon cancer in father LONNY (generalized anxiety disorder) Hiatal hernia History of kidney stones Hy 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 Hyperlipidemia Hypogonadism in male Itching Left knee tendonitis Localized osteoarthritis of left knee Low TSH level Memory difficulties Mid back pain Mild episode of recurrent major depressive disorder Need for hepatitis C screening test Neuropathy involving both lower extremities Numbness OAB (overactive bladder) Obesity (BMI 30.0-34.9) Polyosteoarthritis, unspecified Post-nasal drip Pre-op exam Primary osteoarthritis of left knee Pure hypercholesterolemia Right-sided low back pain without sciatica Tendonitis of left rotator cuff URI, acute Varicose veins of both lower extremities Wellness examination
--- NOTE | 2024-02-02 12:14 | WPDHPUPDATE1 ---
History and Physical Update Update Date/Time: 02/02/24 12:14 History and Physical has been reviewed, including an updated exam of the patient. There are NO changes in the patient's condition. Risks, benefits, and alternatives have been discussed and questions answered. Patient agrees to proceed with procedure.
[2024-02-02 12:30] VITALS: BP 98/70; PULSE 86; RESP 16; O2SAT 94
[2024-02-02 12:40] VITALS: BP 107/71; PULSE 90; RESP 19; O2SAT 96
[2024-02-02 12:50] VITALS: BP 123/87; PULSE 77; RESP 19; O2SAT 99
== END 2024-02-02 13:04 | disposition home or self-care (01) ==
PROVIDERS: PCP Family Medicine; Visit Provider Internal Medicine Gastroenterology
PROC: 0DJD8ZZ Inspection of Lower Intestinal Tract, Via Natural or Artificial Opening Endoscopic (ICD-10-PCS; CPT 45378; principal; 2024-02-02 12:30)
DX: K52.832 Lymphocytic colitis (principal); D12.3 Benign neoplasm of transverse colon; I12.9 Hypertensive chronic kidney disease with stage 1 through stage 4 chronic kidney disease, or unspecified chronic kidney disease; N18.30 Chronic kidney disease, stage 3 unspecified; D64.9 Anemia, unspecified; K21.9 Gastro-esophageal reflux disease without esophagitis; G47.33 Obstructive sleep apnea (adult) (pediatric); Z99.89 Dependence on other enabling machines and devices; F41.9 Anxiety disorder, unspecified; E78.5 Hyperlipidemia, unspecified; N32.81 Overactive bladder; E66.9 Obesity, unspecified; Z68.34 Body mass index [BMI] 34.0-34.9, adult; Z98.890 Other specified postprocedural states; Z87.891 Personal history of nicotine dependence; Z80.0 Family history of malignant neoplasm of digestive organs; Z82.49 Family history of ischemic heart disease and other diseases of the circulatory system
CPT/HCPCS: 45380; 88305; J2704; J7120

== ENCOUNTER 2024-03-09 11:18 | Outpatient (CLI) | payer MEDICARE, SELFPAY ==
[2024-03-13 20:49] LABS: Pancreatic Elastase, Stool 391 mcg/g
== END 2024-03-09 11:19 | disposition home or self-care (01) ==
LOC: ANHLAB 11:22
PROVIDERS: PCP Family Medicine; Visit Provider Nurse Practitioner Family
DX: R19.4 Change in bowel habit (principal); R19.7 Diarrhea, unspecified
CPT/HCPCS: 82653

== ENCOUNTER 2024-09-29 09:31 | Outpatient (CLI) | payer MEDICARE, SELFPAY ==
--- NOTE | ~2024-09-29 | NM_ITS ---
EXAMINATION: NM stress w perf spect multi DATE: 09/29/2024 13:28 INDICATION: Tachycardia. Other forms of dyspnea. TECHNIQUE: Rest images were obtained following intravenous administration of 10.3 mCi Tc99m tetrofosm in (Myoview). The patient performed an exercise activity. At peak exercise, 30.6 mCi Tc99m tetrofosmi n (Myoview) was administered intravenously, and supine and prone stress images were obtained. Data wa s reconstructed into short axis and horizontal and vertical long axis SPECT images. Gated SPECT image s were also obtained. COMPARISON: CT abdomen and pelvis 12/22/2023 FINDINGS: There is a small, mild, fixed perfusion defect involving left ventricular apex, consistent with infarct. No reversible component to suggest ischemia. There is no segmental wall motion abnorma lity. Left ventricular ejection fraction measures 61%. IMPRESSION: 1. 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 2. Normal left ventricular ejection fraction measuring 61%. Reviewed, dictated and finalized at location A. AND [employer] DEFENSE CREWMEMBER
--- NOTE | 2024-09-29 10:00 | EST_ITS ---
Patient Info Name: Mitch Hammonds Age: 69 years : 1955 Gender: Male Ht: 68 in Wt: 234 lbs BSA: 2.30 m2 HR: 66 bpm BP: 127 / 84 mmHg Exam Date: 09/29/2024 11:10 AM Exam Location: Echo Lab Patient Status: Outpatient Admit Date: 09/29/2024 Staff Ordering Physician: Milind Pineda PA-C Attending Provider: Milind Pineda PA-C Exercise Technologist: Lalo MARTINEZ [facility] Exercise Physician: Phuc Calles DO Exam Type: CA stress test treadmill w NM Study Info A nuclear stress test was performed. Summary 1. 1. Negative Ezra exercise stress test for ischemic ST changes by ECG criteria. 2. 2. Reduced functional capacity, achieving 5 METs of workload. 3. 3. Appropriate HR response to exercise. 4. 4. Appropriate HR recovery at 1 minute post exercise. 5. 5. Nuclear scan to follow and will be reported separately. Please correlate with it. 6. 6. Patient informed of the above results. Protocol: Ezra Stress ECG Details Stage: REST Duration (min): 0 min : 52 sec Speed (mph): 0.0 Grade (%): 0 HR (bpm): 66 SBP (mmHg): 127 DBP (mmHg): 84 METS: --- Stage: REST Duration (min): 6 min : 16 sec Speed (mph): 0.0 Grade (%): 0 HR (bpm): 76 SBP (mmHg): 127 DBP (mmHg): 84 METS: --- Stage: STAGE 1 Duration (min): 1 min : 0 sec Speed (mph): 1.7 Grade (%): 10 HR (bpm): 118 SBP (mmHg): 127 DBP (mmHg): 84 METS: --- Stage: STAGE 1 Duration (min): 2 min : 0 sec Speed (mph): 1.7 Grade (%): 10 HR (bpm): 134 SBP (mmHg): 127 DBP (mmHg): 84 METS: --- Stage: STAGE 1 Duration (min): 3 min : 0 sec Speed (mph): 1.7 Grade (%): 10 HR (bpm): 133 SBP (mmHg): 169 DBP (mmHg): 84 METS: --- Stage: STAGE 2 Duration (min): 0 min : 15 sec Speed (mph): 2.5 Grade (%): 12 HR (bpm): 133 SBP (mmHg): 169 DBP (mmHg): 84 METS: --- Stage: RECOVERY Duration (min): 0 min : 44 sec Speed (mph): 0.0 Grade (%): 0 HR (bpm): 120 SBP (mmHg): 169 DBP (mmHg): 84 METS: --- Stage: RECOVERY Duration (min): 0 min : 59 sec Speed (mph): 0.0 Grade (%): 0 HR (bpm): 107 SBP (mmHg): 169 DBP (mmHg): 84 METS: --- Rest HR: 76 bpm Peak HR: 134 bpm Rest Sys BP: 127 mmHg Peak Sys BP: 169 mmHg Max Pred HR: 153 bpm % Max Pred HR: 88 % Target HR: 130 bpm Max RPP: 22,646 bpm*mmHg Gilbert Score: -19 Termination Reason: Reached target heart rate or workload Cardiac Symptoms: Shortness of breath Max ST Seg Deviation: 5 mm Total Time: 3 min : 15 sec Rest Price BP: 84 mmHg Peak Price BP: 84 mmHg Angina Score: None Total METS: 5.0 Resting ECG Sinus rhythm. Stress ECG No ST changes. Arrhythmias None. Report Signatures
== END 2024-09-29 09:32 | disposition home or self-care (01) ==
PROVIDERS: PCP Family Medicine; Visit Provider Physician Assistant
DX: R06.09 Other forms of dyspnea (principal); R07.89 Other chest pain
CPT/HCPCS: 78452; 93017; A9502

== ENCOUNTER 2024-10-15 08:26 | Outpatient (CLI) | payer MEDICARE, SELFPAY ==
[2024-10-15 08:59] LABS: Hematocrit 48.1 % (42.0-52.0); Hemoglobin 16.2 g/dL (14.0-18.0); Mean Corpuscular HGB Conc 33.7 g/dl (32-36); Mean Corpuscular Hemoglobin 31.6 pg (26-34); Mean Corpuscular Volume 93.9 fl (80-100); Mean Platelet Volume 9.6 fl (7.4-10.4); Platelet Count Result 151 k/mm3 (150-375); Red Blood Count 5.12 M/mm3 (4.6-6.20); Red Cell Distribution Width 13.7 % (11.5-14.5); White Blood Count 6.9 K/mm3 (4.5-10.0)
[2024-10-15 09:09] LABS: Add Urine Microscopic? NO; Appearance Urine Clear (Clear); Bilirubin Urine Negative (Negative); Blood Urine Negative (Negative); Color Urine Yellow (Yellow); Glucose Urine UA Negative (Negative); Ketones Urine Negative (Negative); Leukocyte Esterase Ur Negative LEU/UL (Negative); Nitrate Urine Negative (Negative); Protein Urine Negative (Negative); Specific Grav Ur 1.015 (1.001-1.035); Urobilinogen Urine 0.2 mg/dL (<2.0)
[2024-10-15 09:11] LABS: Alanine Aminotransferase 20 U/L (6-50); Albumin Level 4.2 g/dL (3.5-5.1); Alkaline Phosphatase 47 U/L (38-126); Anion Gap 9 mmol/L (4-12); Aspartate Amino Transferase 24 U/L (17-59); Blood Urea Nitrogen 21 mg/dL (9-20); Calcium 9.4 mg/dL (8.4-10.2); Carbon Dioxide 27 mmol/L (22-30); Chloride 103 mmol/L (98-107); Cholesterol 197 mg/dL (0-200); Estimated Glomerular Filt Rate 47; Glucose 106 mg/dL (65-110); HDL Direct 57 mg/dL; Potassium 4.2 mmol/L (3.4-5.0); Sodium 139 mmol/L (137-145); Triglycerides 85 mg/dL (<150)
[2024-10-15 09:21] LABS: LDL Cholesterol Direct 110 mg/dL
[2024-10-15 09:41] LABS: Prostate Specific Antigen 1.6 ng/mL (< OR = 4.0)
== END 2024-10-15 08:27 | disposition home or self-care (01) ==
LOC: ANHLAB 08:29
PROVIDERS: PCP Family Medicine; Visit Provider Physician Assistant
DX: Z12.5 Encounter for screening for malignant neoplasm of prostate (principal); E78.5 Hyperlipidemia, unspecified; N18.9 Chronic kidney disease, unspecified; G47.33 Obstructive sleep apnea (adult) (pediatric); J30.9 Allergic rhinitis, unspecified; R79.89 Other specified abnormal findings of blood chemistry; R68.83 Chills (without fever); Z99.89 Dependence on other enabling machines and devices
CPT/HCPCS: 36415; 80053; 80061; 81003; 84153; 84443; 85027; G0103

== ENCOUNTER 2024-11-03 13:43 | Outpatient (CLI) | payer MEDICARE, SELFPAY ==
--- NOTE | 2024-11-03 13:58 | ECHO_ITS ---
Patient Info Name: iMtch Hammonds Age: 69 years : 1955 Gender: Male Ht: 68 in Wt: 236 lbs BSA: 2.31 m2 HR: 75 bpm BP: 133 / 87 mmHg Technical Quality: Fair Exam Date: 11/03/2024 2:06 PM Exam Location: Echo Lab Patient Status: Outpatient Admit Date: 11/03/2024 Staff Ordering Physician: Phuc Calles DO [employer] Operator: Rubin Orosco RDCS Attending Provider: Phuc Calles DO Referring Physician: Stevan PEÑA; Exam Type: CA echo dop color flow w con Study Info Indications R06.09 - Other forms of dyspnea Complete two-dimensional, color flow and Doppler transthoracic echocardiogram is performed with contrast to opacify the left ventricle and to improve the deliniation of the left ventricle endocardial borders. Contrast/Agitated Saline Contrast/Ag. Saline: Definity Amount: 2.00 ml IV Access Condition: patent with no signs of infiltration Summary 1. Definity contrast administered improved wall motion interpretation. 2. Left ventricular chamber dimension is normal. 3. Left ventricular systolic function is normal, estimated at 60-65%. 4. The left ventricular diastolic function is abnormal. 5. E/e' 14 is mildly elevated. 6. There is mild tricuspid valve regurgitation. 7. No pulmonary hypertension, estimated pulmonary arterial systolic pressure is 29 mmHg. 8. There is trace pulmonic regurgitation. Left Ventricle E/e' 14 is mildly elevated. Definity contrast administered improved wall motion interpretation. Left ventricular chamber dimension is normal. Left ventricular systolic function is normal, estimated at 60-65%. The left ventricular diastolic function is abnormal. Right Ventricle Right ventricular chamber dimension is normal. Right ventricular systolic function is normal. Left Atria Left atrial chamber dimension is normal. Right Atria Right atrial chamber dimension is normal. Aortic Valve The aortic valve is trileaflet. There is no aortic valve stenosis. There is no aortic valve regurgitation. Pulmonic Valve There is trace pulmonic regurgitation. Mitral Valve There is no mitral valve stenosis. There is no mitral valve regurgitation. Tricuspid Valve There is mild tricuspid valve regurgitation. No pulmonary hypertension, estimated pulmonary arterial systolic pressure is 29 mmHg. Pericardium/Pleural There is no pericardial effusion. Inferior Vena Cava Normal inferior vena cava with >50% collapse upon inspiration consistent with normal right atrial pressure, 5 mmHg. Aorta The aortic root size at the sinus of Valsalva is normal. Left Ventricular Outflow Tract Name Value Normal LVOT 2D LVOT Diameter 2.10 cm LVOT Doppler LVOT Peak Gradient 3 mmHg LVOT Mean Gradient 2 mmHg LVOT VTI 16.55 cm LVOT VTI/AV VTI Ratio 0.79 LVOT Stroke Volume 57.35 ml LVOT CO 4.13 l/min LVOT CI 1.79 L/min/m2 Pulmonic Valve Name Value Normal PV Doppler PV Peak Gradient 3 mmHg PV Regurgitation Doppler CT Peak End Diastolic Velocity 89.37 cm/s Mitral Valve Name Value Normal MV Doppler MV Decel Candler 455.57 cm/s2 MV PHT 0 s MV Area (PHT) 3.68 cm2 4.00-5.00 MV Diastolic Function MV E Peak Velocity 93.90 cm/s MV A Peak Velocity 78.36 cm/s MV E/A 1.20 MV Decel Time 0 s Tricuspid Valve Name Value Normal TV Regurgitation Doppler TR Peak Velocity 246.94 cm/s TR Peak Gradient 21 mmHg Estimated PAP/RSVP RA Pressure 5 mmHg <=5 PA Systolic Pressure 29 mmHg <36 RV Systolic Pressure 29 mmHg <36 Aorta Name Value Normal Ascending Aorta Ao Root Diameter (MM) 2.60 cm Ao Root Diam Index (MM) 1.13 cm/m2 Aortic Valve Name Value Normal AV Doppler AV Peak Velocity 109.75 cm/s AV Peak Gradient 5 mmHg AV Mean Gradient 3 mmHg AV VTI 20.87 cm AV Area (Cont Eq VTI) 2.75 cm2 >=3.00 AV Area (Cont Eq Foreign) 2.79 cm2 AV Regurgitation 2D LVOT Area 3.46 cm2 Ventricles Name Value Normal LV Dimensions 2D/MM IVS Diastolic Thickness (2D) 0.77 cm 0.60-1.00 IVS Diastole Thickness (MM) 0.86 cm 0.60-1.00 LVID Diastole (2D) 4.20 cm 4.20-5.80 LVID Diastole (MM) 5.18 cm 4.20-5.80 LVIW Diastolic Thickness (2D) 0.91 cm 0.60-1.00 LVIW Diastolic Thickness (MM) 0.86 cm 0.60-1.00 LVID Systole (2D) 2.29 cm 2.50-4.00 LVID Systole (MM) 3.46 cm 2.50-4.00 LVOT Diameter 2.10 cm LV Mass (2D Cubed) 108.10 g 88.00-224.00 LV Mass Index (2D Cubed) 0.00 g/cm2 0.00-0.01 Relative Wall Thickness (2D) 0.43 LV Mass (MM Cubed) 157.55 g 88.00-224.00 LV Mass Index (MM Cubed) 0.01 g/cm2 0.00-0.01 Relative Wall Thickness (MM) 0.33 LV Fractional Shortening/Ejection Fraction 2D/MM LV Fractional Shortening (2D) 45 % 25-43 LV Fractional Shortening (MM) 33 % 25-43 LV EF (MM Teicholz) 61 % 52-72 LV EF (2D Teicholz) 77 % 52-72 LV Diastolic Volume (4C MOD) 71.85 ml LV EF (4C MOD) 56 % LV Diastolic Volume (2C MOD) 66.79 ml LV EF (2C MOD) 60 % LV Diastolic Volume (BP MOD) 68.99 ml 62.00-150.00 LV Diastolic Volume Index (BP MOD) 0.03 l/m2 0.03-0.07 LV Systolic Volume (BP MOD) 29.17 ml 21.00-61.00 LV Systolic Volume Index (BP MOD) 0.01 l/m2 0.01-0.03 LV EF (BP MOD) 58 % 52-72 LV Diastolic Length (4C) 8.62 cm LV Systolic Length (4C) 7.30 cm LV Stroke Volume (4C MOD) 40.56 ml Atria Name Value Normal LA Dimensions LA Dimension (MM) 4.17 cm 3.00-4.10 LA Volume (4C A-L) 43.35 ml LA Volume (BP A-L) 46.33 ml RA Dimensions RA Area (4C) 14.27 cm2 <=18.00 Report Signatures
[2024-11-03] MEDS: PERFLUTREN LIPID MICROSPHERES 1.5 ML VIAL DILUTED TO 10 ML TOTAL VOLUME IV PUSH (14:25)
--- NOTE | 2024-11-03 15:20 | IVDEFINITY ---
Prior to administration of IV Definity the patient was educated on the risks and benefits of the imaging enhancing agent including potential adverse side effects. The patient verbalized understanding. Allergies were verified. No exclusion criteria were identified and at least one of the following inclusion criteria were met: 1) physician request, 2) patient technically difficult to image (per the [place] [employer] Echocardi[employer] guidelines of two or more segments not discernable within the apical view), or 3) questionable left ventricular function. ?
== END 2024-11-03 13:44 | disposition home or self-care (01) ==
LOC: ANHCARD 13:44
PROVIDERS: PCP Family Medicine; Visit Provider Internal Medicine Cardiovascular Disease
DX: I07.1 Rheumatic tricuspid insufficiency (principal)
CPT/HCPCS: C8929; Q9957

== ENCOUNTER 2025-03-25 10:28 | Outpatient (CLI) | payer MEDICARE, SELFPAY ==
--- NOTE | ~2025-03-25 | XR_ITS ---
AP and lateral views of the left hip Clinical history: Pain Findings: No acute fracture or dislocation is seen. Osseous alignment is anatomic. Left hip joint is intact. Soft tissues are unremarkable. Impression: No significant abnormality is seen. Reviewed, dictated and finalized at location M. Impression: No significant abnormality is seen.
--- NOTE | ~2025-03-25 | XR_ITS ---
Lumbosacral Spine: AP, oblique, and lateral views Clinical History: Pain Findings: The normal lordotic curve is maintained. The vertebral bodies and posterior elements are i ntact. There are minimal degenerative disc changes. There is severe facet arthropathy from L3 through S1. The sacroiliac joints are normally outlined. Impression: Extensive, advanced facet arthropathy, as detailed above. Reviewed, dictated and finalized at location M. Impression: Extensive, advanced facet arthropathy, as detailed above.
== END 2025-03-25 10:29 | disposition home or self-care (01) ==
LOC: MICIMG 10:30
PROVIDERS: PCP Physician Assistant
DX: M47.817 Spondylosis without myelopathy or radiculopathy, lumbosacral region (principal); M25.552 Pain in left hip; R26.81 Unsteadiness on feet; M47.816 Spondylosis without myelopathy or radiculopathy, lumbar region
CPT/HCPCS: 72110; 73502

== ENCOUNTER 2025-05-04 10:00 | Outpatient (RCR) | payer MEDICARE, SELFPAY ==
--- NOTE | 2025-04-13 12:04 | OPREHPOC ---
Outpatient Therapy Plan of Care This is a Multidisciplinary Plan of Care that may contain components documented by all disciplines (PT, OT, and ST.) PT Problem 1 PT Problem #1 Knowledge Deficit PT Goal 1 Goal / Goal Update 1* independent with HEP 2* correct body mechanics with lifting from the floor Target Visit 8 PT Problem 2 PT Problem #2 Pain PT Goal 1 Goal / Goal Update 1* pt report pain in back at worst of 4/10 2* radicular pain into L LE to knee at worst Target Visit 8 PT Problem 3 PT Problem #3 Impaired Flexibility PT Goal 1 Goal / Goal Update *increase flexibility of L hip to decrease pull on spine and hip: 1* hamstring length with supine SLR 70' 2* supine piriformis with leg cross, stretch to mid line of body Target Visit 8 PT Problem 4 PT Problem #4 Impaired Strength PT Goal 1 Goal / Goal Update increase trunk strength and stability: * in standing, pt not have forward rotation of R trunk forward Target Visit 8
--- NOTE | 2025-04-13 12:05 | PTOPEVAL1 ---
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 He has a history of low back pain, but has worsened with pain into L LE and knee giving out. Also have history of L TKR and L plantar fasciitis and foot pain. Self assessment with Back Index rating of 25=50% limitation in activity level. He is retired and does all home tasks, with more pain. x ray lumbar reports severe facet arthropathy L 3 to S1. With the evaluation: he has poor standing posture of trunk- R forward rotation of shoulder and trunk and R hip elevated; compared to R- has tightness over L hamstring and piriformis muscles; standing trunk extension increases pain > flexion; prone on elbows stretch decreased his back pain; Skilled PT services are indicated for modalities to decrease pain, therapeutic exercises to stretch trunk and hips, with education for HEP and body mechanics/posture. Plan of Care Interventions Electrical Stimulation,Hot Pack/Cold Pack,Manual Therapy,Mechanical Traction,Neuro Re-education, Patient/Caregiver Education,Therapeutic Activities ,Therapeutic Exercise,Ultrasound,Other Other Interventions taping PT Services Indicated Yes Treatment Frequency and 1-2x/wk for 8 visits Duration These treatments will address the objective and functional deficits as defined above. The patient will be advanced safely and appropriately in order for the patient to progress towards his/her prior level of function. Additional exercises will be introduced and as well as a comprehensive home exercise program upon discharge, if needed, ?to ensure carryover of functional gains achieved in the clinic. This treatment plan has been reviewed and agreement upon by the patient.
--- NOTE | 2025-05-04 11:04 | OPREHPOC ---
Outpatient Therapy Plan of Care This is a Multidisciplinary Plan of Care that may contain components documented by all disciplines (PT, OT, and ST.) PT Problem 1 PT Problem #1 Knowledge Deficit PT Goal 1 Goal / Goal Update 1* independent with HEP 2* correct body mechanics with lifting from the floor 05-04-25 d/c goals met Target Visit 8 Progress Met PT Problem 2 PT Problem #2 Pain PT Goal 1 Goal / Goal Update 1* pt report pain in back at worst of 4/10 2* radicular pain into L LE to knee at worst 05-04-25 d/c goal 2 met Target Visit 8 Progress Partially Met PT Problem 3 PT Problem #3 Impaired Flexibility PT Goal 1 Goal / Goal Update *increase flexibility of L hip to decrease pull on spine and hip: 1* hamstring length with supine SLR 70' 2* supine piriformis with leg cross, stretch to mid line of body 05-04-25 d/c goals met Target Visit 8 Progress Met PT Problem 4 PT Problem #4 Impaired Strength PT Goal 1 Goal / Goal Update increase trunk strength and stability: * in standing, pt not have forward rotation of R trunk forward 05-04-25 d/c goal met Target Visit 8 Progress Met
--- NOTE | 2025-05-04 11:05 | PTOPDC ---
Assessment and note entered by Maty Santiago, PT Assessment Status Discharge ICD-10 Condition Codes (PT) Pain in low back M54.50,Radiculopathy, lumbar region M54.16,Pain in left hip M25.552 Other ICD-10 Condition Codes ( M47.816 spondylosis lumbar PT) Onset September 2024 Subjective Information doing better, back is not hurting as severe and have learned some stretching and how to control the pain better; Reported Pain Level Pain Score 2: Self Report Pain Score 2: Self Report Additional Pain Score Comments pain range in the past week 1-6/10; not up to 6/10 for very long; deep in back, intermittent, radicular into L lateral hip, posterior-lateral mid- thigh; occasionally L knee give out feeling- but less increase pain: more activity, working in yard, walking/ up for about 3 hours, when first wake up in AM decrease pain: sit, rest, stretch back, move positions, volteran cream, heat; massage roller over leg Assessment PT Clinical Summary Giuseppe has received 8 PT sessions. Compared to the initial eval: pain rating the same at 1-6/10 with decreased radicular L LE pain from calf to mid thigh; self assessment with back index rating from 50 to 26% limitation in activity level; reported activity tolerance from 2 to 3 hours before stopping to rest; increase flexibility of hamstring and piriformis on L; increase trunk and hip strength; education completed for HEP and body mechanics, with pain management techniques. The goals were partially met. Discharge PT services. He is to continue with his HEP, body mechanics and pain management techniques. Plan of Care PT Services Indicated No
== END 2025-05-10 11:04 | disposition home or self-care (01) ==
LOC: ANHPT 10:00
PROVIDERS: PCP Family Medicine; Visit Provider Physician Assistant
DX: R26.81 Unsteadiness on feet (principal); M54.50 Low back pain, unspecified; M47.816 Spondylosis without myelopathy or radiculopathy, lumbar region; M25.552 Pain in left hip
CPT/HCPCS: 97014; 97110; 97140; 97161; 97530; G0283

== ENCOUNTER 2025-06-09 08:57 | Outpatient (CLI) | payer MEDICARE, SELFPAY ==
--- OUTSIDE RECORDS SUMMARY | 2025-06-09 09:02 | XMS_ITS | Referral Summary ---
Author Organization [facility] Address [address] [place] [address] Care Team Providers Care Sports Physician Name Role Phone Yandel Klein MD Primary Care Provider Allergies Active Allergy Reactions Criticality Noted Date Comments Amoxicillin-Pot Clavulanate Other (See comments) Low 07/20/2023 Drug related liver injury Cefuroxime Metoclopramide Prochlorperazine Medications cetirizine (ZyrTEC) 10 mg tablet take 1 tablet (10MG) by oral route every day 0 06/25/20 11 Active busPIRone (BUSPAR) 10 mg tablet take 1 tablet (10MG) by oral route 3 times every day 0 06/25/20 11 Active venlafaxine XR (EFFEXOR XR) 37.5 mg 24 hr capsule take 2 capsule (75 MG) by oral route every day with food 0 02/17/20 12 Active cholecalciferol (VITAMIN D3) 2,000 unit capsule take 1 a day 0 02/23/20 13 Active testosterone (ANDROGEL) 1.62 % (20.25 mg/1.25 gram) gel in packet apply 1 packet (20.25MG) by transdermal route every day 90 packet 2 02/23/20 13 Active ondansetron ODT (ZOFRAN-ODT) 4 mg disintegrating tabletIndications: Nausea and Vomiting Take 1 tablet (4 mg total) by mouth every 6 (six) hours as needed for nausea or vomiting 20 tablet 07/20/20 23 Active hydrOXYzine (ATARAX) 25 mg tablet Take 1 tablet (25 mg total) by mouth every 4 (four) hours as needed for itching 15 tablet 07/20/20 23 Active lisinopriL (PRINIVIL,ZESTRIL) 5 mg tablet Take 1 tablet (5 mg total) by mouth daily 30 tablet 11 07/20/20 23 Active Active Problems Problem Noted Date Diagnosed Date Nausea and vomiting, unspecified vomiting type 0 07/18/2023 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 Pain of hand 11/16/2013 Arthralgia of wrist 09/14/2013 Injury of finger 06/22/2013 Drug indicated 08/17/2012 Overview (02/20/2017): High risk medication use Hyperlipidemia 08/17/2012 Overview (02/21/2017): HYPERLIPIDEMIA NEC/NOS Social History Tobacco Use Types Packs/Day Years Used Date Smoking Tobacco: Former Cigarettes Q uit: 1979 Tobacco Cessation:Counseling Given: Not Answered Alcohol Use Standard Drinks/Week Comments Yes 1 (1 standard drink = 0.6 oz pur e alcohol) socially Personal Safety Answer Date Recorded Have you ever been in or are you currently in a harmful physical or emotional relationship or is someone making you feel afraid or unsafe? Denies 07/19/2023 Sex and Gender Information Value Date Recorded Sex Assigned at Not on file Legal Sex Male 10:11 AM OPHTHALMIC ASST Gender Identity Not on file Sexual Orientation Not on file Last Filed Vital Signs Vital Sign Reading Time Taken Comments Blood Pressure 119/75 07/20/2023 4:22 AM CDT Pulse 70 07/20/2023 4:22 AM CDT Temperature 36.5 C (97.7 F) 07/20/2023 4:22 AM CDT Respiratory Rate 17 07/20/2023 4:22 AM CDT Oxygen Saturation 96% 07/20/2023 4:22 AM CDT Inhaled Oxygen Concentration - - Weight 102 kg (224 lb 14.4 oz) 07/19/2023 2:33 A M CDT Height 174 cm (5' 8.5) 07/19/2023 2:33 AM CDT Body Mass Index 33.69 07/19/2023 2:33 AM CDT Plan of Treatment Not on file Procedures Procedure Name Priority Date/Time Associated Diagnosis Comments HEPATITIS PANEL, ACUTE Routine 07/19/2023 12:12 AM CDT from Last 3 Months or Most Recently Relevant to Health Maintenance Results * Hepatitis panel, acute Blood (07/19/2023 12:12 AM CDT) Hep A IgM Nonreactive Nonreactive Hep B core IgM Nonreactive Nonreactive [facility] Hep C Ab Nonreactive Nonreactive [facility] Comment:Antibodies to HCV no t detected. Does NOT exclude the possibility of recent exposure to HCV. Current interpretive data was last revised on 22 HepBsAg Nonreactive Nonreactive [facility] Blood 07/19/2023 12:1 2 AM CDT 07/19/2023 12:25 AM CDT Tonya Mcgovern MD LAB MICROBIOLOGY - GENERAL OR DERABLES Final Result Performing Organization Address City/State/[facility] Co de Phone Number [facility] [place] [address] from Last 3 Months or Most Recently Relevant to Health Maintenance Insurance [facility] Address: [facility] [address] [place] [address] [facility]ICARE [facility] Address: [address] [address] [place] [address] [facility] Address: [address] [address] [place] [address] Advance Directives For more information, please contact: [phone] * Full Code (Latest Code Status on File) Date Activated Date Inactivated Comments 07/19/2023 2:51 AM 07/20/2023 6:39 PM Care Teams Sports Physician Relationship Specialty Start Date End Date Yandel Klein MD [address] [facility] [address] [place] [address] PCP - General Family Medicine 07/18/23
--- OUTSIDE RECORDS SUMMARY | 2025-06-09 09:02 | XMS_ITS | Clinical Summary ---
Author Organization [facility] Address [address] [facility] [place] [address] Care Team Providers Care Quarantine Inspector Name Role Phone Yandel Klein MD Primary Care Provider [phone] Source Comments [facility],non-owned Affiliates and Associated Physician Practices is amultiple site organization consisting of ambulatory clinics and hospital sitesin [place], [place], [place] and [place]. This disclosure is being madepursuant to the Care Everywhere program and may not contain all information available regarding this patient. Last updated 18.[employer] Allergies Active Allergy Reactions Criticality Noted Date Comments Cefuroxime 03/10/2017 Metoclopramide 03/10/2017 Medications * Be aware that medications may not be up to date on this document. Alwaysverify current medications with the patient. hydrocortisone (HYTONE) 1 % creamIndication s:Pruritus Apply to affected area 3 times daily Reasons: Itching 1.5 g 1 03/10/2017 Active Active Problems No known active problems Social History Tobacco Use Types Packs/Day Years Used Date Smoking Tobacco: Never Assessed Sex and Gender Information Value Date Recorded Sex Assigned at Not on file Legal Sex Male 2:37 PM CDT Gender Identity Not on file Sexual Orientation Not on file Last Filed Vital Signs Vital Sign Reading Time Taken Comments Blood Pressure 132/74 03/10/2017 3:10 PM CDT Pulse 98 03/10/2017 3:10 PM CDT Temperature 36.6 C (97.9 F) 03/10/2017 3:10 PM CDT Respiratory Rate 16 03/10/2017 3:10 PM CDT Oxygen Saturation 98% 03/10/2017 3:10 PM CDT Inhaled Oxygen Concentration - - Weight 98.9 kg (218 lb) 03/10/2017 3:10 PM CDT Height 172.7 cm (5' 8) 03/10/2017 3:10 PM CDT Body Mass Index 33.15 03/10/2017 3:10 PM CDT Plan of Treatment Health Maintenance Due Date Last Done Comments COLOGUARD (AGES 45-75) - COL ON CA SCREENING 1957 COLON MONITORING 1957 COLONOSCOPY - COLON CA SCREENING 1957 CT COLONOGRAPHY - COLON CA SCREENING 1957 Colorectal Cancer Screening 1957 FIT - COLON CA SCREENING 1957 FLEX SIG - COLON CA SCREENING 1957 LIPID TESTING 1957 HEPATITIS C SCREENING 04/24/1975 DTAP/TDAP/TD VACCINES (1 - Tdap) 1976 PNEUMOCOCCAL VACCINE 50+ (1 of 1 - PCV) 2007 ZOSTER VACCINE (1 of 2) 2007 COVID-19 VACCINE (1 - 2023-2 5 season) 2024 DEPRESSION SCREENING 11/17/2024 MEDICARE AWV CALENDAR YEAR 2024 INFLUENZA VACCINE (#1) 2025 Respiratory Syncytial Virus (RSV) Vaccine Pt: or over 60 yrs (1 - 1-dose 75+ series) 2032 HEPATITIS B VACCINE Aged Out No longe r eligible based on patient's age to complete this topic HIB VACCINE Aged Out No longer eligi ble based on patient's age to complete this topic HPV VACCINE Aged Out No longer eligi ble based on patient's age to complete this topic MENINGOCOCCAL (Group B) VACC INE SHARED DECISION-MAKING Aged Out No longer eligibl e based on patient's age to complete this topic MENINGOCOCCAL GROUPS A/C/Y/W VACCINE Aged Out No longer eligible b ased on patient's age to complete this topic Insurance [id number] MANAGED MEDICARE ADV Member Subscriber Plan / Payer (Ef fective 2023-Present) Name:Yoni Siegel Relation to Subscriber:Self Name:Yoni Siegel Payer ID:[id number] (NAIC) Type:Medicare-Managed Care Address: [place] [id number] MANAGED MEDICARE ADV MANAGED MEDICARE ADV MANAGED MEDICARE ADV Care Teams Quarantine Inspector Relationship Specialty Start Date End Date Yandel Klein MD [address] [place] [id number] PCP - General Family Medicine 03/10/17
--- OUTSIDE RECORDS SUMMARY | 2025-06-09 09:02 | XMS_ITS | Data Portability ---
Author Organization [place] - [email or web address], Main Office Address [address] [place] [address] Care Team Providers Care Grainer Machine Name Role Phone CLIFF SABILLON Primary Care Provider [phone] CLIFF SABILLON Referring Provider [phone] Assessment Encounter Date Assessment Date Assessment LastModified by Organization Details LastModified Time 04/02/2023 04/02/2023 HPI: Patient returns. He is here for evaluation of his right long finger pain. This pain started about 10 days ago. He was using a lot of tools around the house. He states he was using pliers and screwdrivers and doing a lot of forceful work with his hand for about a day and half. He has also been doing a lot a yd work and this was involving a lot of gripping and holding as well. He started developing pain in the 3rd finger of his right hand. He recalls no injury or trauma while he was doing his activities that would start this. He does not take anti-inflammatori es due to chronic kidney disease. He has been taking Tylenol this is not been helping much with his symptoms. Patient has been resting his hand for last 3 or 4 days and at this point he is having minimal symptoms. Physical exam: 67-year-old male alert pleasant. He has full range of motion of the right long finger. No numbness or tingling. There is no tenderness or swelling about any of the joints in the finger or the MP. Wrist has full range of motion without discomfort. 2+ radial pulse. No redness or warmth noted about the hand or fingers. 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 I discussed x-ray findings with him. I would suspect that this was an overuse issue and with the rest the last several days it seems to have quieted down very quickly. We talked about using Voltaren gel if he has recurrence of his symptoms as I think this will help and also avoid any issues with his kidneys. We also talked about avoidance of overuse as this will tend to make the finger her worse. None of the arthritis that he has in the finger is severe and the fact that it is quieted down very quickly is also very promising. If his symptoms worsen or change she will call otherwise this point we will see him back as needed. 20 minutes was spent in treatment patient more half of this in [id number] conversation Not available 04/02/2023 17:04:17 05/05/2023 05/05/2023 HPI: Patient returns He is here for 5 year routine x-ray surveillance of his left total knee arthroplasty. surgery was done in 2017. The knee continues do very well for him. He will have occasional twinge pain in the knee but this is very rare. Overall he is very happy with his results. Physical exam: Patient is walking very well today. He has no effusion in the left knee. Range of motion is from 0-140 degrees. He has excellent stability in both flexion extension. There is no redness or warmth or tenderness about the left knee. Hip range of motion is full without discomfort. There is no edema in either lower extremity. 2+ dorsalis pedis pulse. Impression: Patient's left total knee continues do very well for him. X-rays look perfect. He has great range of motion instability on physical exam. He is happy with the results. Long-term risk of infection was discussed. We will see him back in another 5 years for routine x-ray surveillance or sooner if he has problems. 20 minutes was spent in treatment patient more than half of this in [id number] conversation Not available 05/05/2023 14:37:44 Plan of Treatment Reminders Order Date Submit Date Provider Last Modified By Organization Details Last Modified Time Details Appointments None record ed. Lab None record ed. Referral None record ed. Procedures None record ed. Surgeries None record ed. Imaging XR, knee 023 05/05/20 23 [email or web address] [place], [facility], [place], [address], 3 16:34:37 XR, hand 023 04/02/20 23 [email or web address] [facility] [place], [address], [place], [address], 3 11:58:49 Medication Orders None record ed. Patient TargetsNo targets recorded. Patient InstructionsNo instructions recorded. Reason for Referral None Reported. Results Created Date Observation Date Name Description Value Unit Range Abnormal Flag Note LastModifiedBy Organization Detail LastModifiedTime 08/02/20 22 XR, shoul ric No observ ation record ed. [id number] [facility] [place] [address], [place], [address], 01/15/2023 13:32:14 04/02/20 23 XR, hand No observ ation record ed. [facility] [place] [address], [place], [address], 04/02/2023 17:01:32 05/05/20 23 XR, knee No observ ation record ed. [facility] [place] [address], [place], [address], 05/05/2023 14:36:07 Result Notes None recorded. Problems Name Problem SNOMED Code Status Onset Date Resolution Date Notes Provider Name and Address Organization Details Recorded Time Disorder of shoulder 135218337 Active Not Available [facility] 3 13:30:06 Radiothera py follow-up 669081233 Active Not Available [facility] 3 13:30:06 Osteoarthr itis 786900514 Active Not Available [facility] 3 13:30:06 Arthropath y of joint of hand 858634434 Active Not Available [facility] 3 13:30:06 Pain of left shoulder joint 7263444180959 9109 Active 2021 Not Available [facility] 3 13:30:06 Pain of left hand 4663780252763 03 Active 2022 NGOZI Jackson null, [facility] 3 15:03:17 Pain in right hand 8822955393755 09 Active 2022 NGOZI Jackson null, [facility] 3 15:03:27 Problem Notes None recorded. Procedures Surgical History Date Name Laterality Status Provider Name and Address Organization Details Recorded Time Knee Replacement completed Not Available [facility] 01/15/2023 13:29:35 Imaging Results None recorded. Procedure Notes None recorded. Medical Equipment None Reported. Medications Name Sig Start Date Stop Date Status Note LastModified by Organization Details LastModified Time BD Luer-Vashti Syringe 3 mL 23 x 1 11/14 completed Not Available Not Available Not Available cyclobenzap rine 10 mg tablet TAKE 1 TABLET BY MOUTH AT BEDTIME NEEDED 08/02 completed Not Available Not Available Not Available amoxicillin 500 mg capsule TAKE ALL 4 CAPSULES BY MOUTH ONCE 1 HOUR PRIOR TO APPOINTME NT 04/02 completed Not Available Not Available Not Available venlafaxine ER 75 mg capsule,ext ended release 24 hr active Not Available Not Available Not Available rabeprazole 20 mg tablet,karen yed release TAKE 1 TABLET BY MOUTH EVERY DAY 11/14 completed Not Available Not Available Not Available venlafaxine 75 mg tablet Take 1 tablet twice a day by oral route. 2021 active Not Available Not Available Not Avai lable ketoconazol e 2 % shampoo 05/05 completed Not Available Not Available Not Available atorvastati n 10 mg tablet 11/14 completed Not Available Not Available Not Available pravastatin 40 mg tablet Take 1 tablet every day by oral route. active Not Available Not Available No t Available BD Safety-Vashti Detachable Needle 3 mL 22 gauge x 1 syringe 11/14 completed Not Available Not Available Not Available hydrocodone 5 mg-acetamin ophen 325 mg tablet 11/14 completed Not Available Not Available Not Available sertraline 100 mg tablet 11/14 completed Not Available Not Available Not Available ciprofloxac in 500 mg tablet 11/14 completed Not Available Not Available Not Available omeprazole 40 mg capsule,del ayed release active Not Available Not Available Not Available tramadol 50 mg tablet TAKE 1 TABLET BY MOUTH EVERY 8 HOURS NEEDED 05/05 completed Not Available Not Available Not Available triamcinolo ne acetonide 0.1 % topical cream 11/14 completed Not Available Not Available Not Available amoxicillin 500 mg tablet 04/02 completed Not Available Not Available Not Available oxycodone-a cetaminophe n 5 mg-325 mg tablet 11/14 completed Not Available Not Available Not Available alprazolam 0.5 mg tablet TAKE 1 TABLET BY MOUTH TWICE A DAY 11/14 completed Not Available Not Available Not Available tamsulosin 0.4 mg capsule 11/14 completed Not Available Not Available Not Available esomeprazol e magnesium 40 mg capsule,del ayed release 11/14 completed Not Available Not Available Not Available buspirone 10 mg tablet TAKE 1 TABLET BY MOUTH TWICE A DAY active Not Available Not Available No t Available lisinopril 10 mg tablet 05/05 completed Not Available Not Available Not Available promethazin e 25 mg tablet 11/14 completed Not Available Not Available Not Available lisinopril 5 mg tablet TAKE 1 TABLET BY ORAL ROUTE EVERY DAY 11/14 completed Not Available Not Available Not Available mirtazapine 15 mg tablet TAKE 1/2 TABLET BY MOUTH AT BEDTIME 11/14 completed Not Available Not Available Not Available testosteron e cypionate 200 mg/mL intramuscul ar oil INJECT 1ML INTO THE MUSCLE EVERY 2 WEEKS 11/14 completed Not Available Not Available Not Available zolpidem 10 mg tablet 11/14 completed Not Available Not Available Not Available methylpredn isolone 4 mg tablets in a dose pack TAKE 6 TABLETS ON DAY 1 DIRECTED ON PACKAGE AND DECREASE BY 1 TAB EACH DAY FOR A TOTAL OF 6 DAYS 11/14 completed Not Available Not Available Not Available celecoxib 100 mg capsule 11/14 completed Not Available Not Available Not Available fluoxetine 20 mg capsule TAKE 1 CAPSULE BY MOUTH EVERY MORNING 11/14 completed Not Available Not Available Not Available sertraline 50 mg tablet 11/14 completed Not Available Not Available Not Available Crestor 10 mg tablet 11/14 completed Not Available Not Available Not Available bupropion HCl XL 300 mg 24 hr tablet, extended release 11/14 completed Not Available Not Available Not Available bupropion HCl XL 150 mg 24 hr tablet, extended release 11/14 completed Not Available Not Available Not Available duloxetine 30 mg capsule,del ayed release 11/14 completed Not Available Not Available Not Available duloxetine 60 mg capsule,del ayed release 11/14 completed Not Available Not Available Not Available omeprazole 2021 active Not Available Not Available Not Avai lable lisinopril 05/05 completed Not Available Not Available Not Available buspirone 2021 active Not Available Not Available Not Avai lable BD Regular Bevel Oceano 22 gauge x 1 11/14 completed Not Available Not Available Not Available GaviLyte-N 420 gram oral solution 11/14 completed Not Available Not Available Not Available Brintellix 10 mg tablet 11/14 completed Not Available Not Available Not Available Avenova 0.01 % topical spray SPRAY 2 SPRAYS ONTO COTTON PAD AND WIPE UPPER AND LOWER LIDS TWICE DAILY 11/14 completed Not Available Not Available Not Available Trintellix 20 mg tablet 11/14 completed Not Available Not Available Not Available Vitals Date Recorded Body height Provider Name an d Address Organization Details Last Updated DateTime 04/02/2023 170.18 cm Bronwynbren Prince [facility] [employer] [facility] 04/02/2023 15:02:41 Date Recorded Body height Provider Name an d Address Organization Details Last Updated DateTime 05/05/2023 170.18 cm Bronwynbren Prince [facility] [employer] [facility] 05/05/2023 14:15:26 Date Recorded Body mass index (BMI) Body height Body weight Provider Name and Address Organization Details Last Updated DateTime 08/02/2022 35.9 kg/m2 170.18 cm 524337.65 g Not Available [facility] 01/15/2023 13:29:37 Social History None recorded. Functional Status None recorded. Mental Status None recorded. Family History Relationship Description Onset Age of this Age Resolved Age Notes LastModified by Organization Details LastModified Time Mother Heart disease [id number] Not available 01/15/2023 13:29:35 Sister Heart disease [id number] Not available 01/15/2023 13:29:35 Father Family history of malignant neoplasm [email or web address] Not available 2022 14:14:10 Medical History Condition Response BLINDNESS N KIDNEY STONES N MRSA N CARPAL TUNNEL SYNDROME N LUNG DISEASE/DISORDER N HISTORY OF DRUG ABUSE N RADIATION / CHEMOTHERAPY N COPD N SPORTS INJURY N ANKLE PAIN N BLOOD DISEASES N SCHIZOPHRENIA N SHINGLES N SHOULDER PAIN N DEPRESSION (INCLUDING POST ) N BOWEL PROBLEMS N STROKE/TIA N ULCERS N KNEE PAIN N BENIGN PROSTATIC HYPERPLASIA N OBESITY N GERD/NAUSEA N ANEURYSM N URINARY/BLADDER/KIDNEY PROBLEMS N CORONARY ARTERY DISEASE (CAD) N ADDICTION CONCERNS N USE OF BLOOD THINNERS N SKIN PROBLEMS N EMPHYSEMA N MUSCLE,JOINT OR BONE PROBLEMS N DVT N STOMACH ULCERS N BLOOD CLOTS N USE OF NSAIDS N CONCUSSION OR SPINAL TRAUMA N NEUROPATHY N AIDS/HIV N FRACTURES N HYPERTENSION Y ELBOW PAIN N TOURETTE'S N Metal allergy N ANXIETY DISORDER N BLOOD TRANSFUSION N ANEMIA/BLOOD DISORDER N BIPOLAR DISORDER N BRONCHITIS N OSTEOARTHRITIS N TUBERCULOSIS N FOOT PROBLEM N HEART VALVE DISORDERS N SOFT TISSUE INJURY N ALLERGIES/HAYFEVER N INFECTIOUS DISEASE N HEART ARRHYTHMIA N INSOMNIA N RHEUMATOID ARTHRITIS N HIGH CHOLESTEROL / HYPERLIPIDEMIA N EDEMA N CHRONIC PAIN SYNDROME N CAROTID BLOCKAGE N BACK / NECK PROBLEMS N HAVE YOU BEEN HOSPITALIZED OR SEEN IN [facility] IN THE PAST YEAR ? N BURSITIS N HERNIATED DISC N DIALYSIS N FIBROMYALGIA N OSTEOPOROSIS N ARTHRITIS Y NO SIGNIFICANT PAST MEDICAL HISTORY N PERIPHERAL NEUROPATHY N DIABETES, TYPE N HEARTBURN / REFLUX N HEPATITIS / LIVER DISEASE N GOUT N SLEEP DISORDER N ALZHEIMER'S DISEASE N HERPES N SEIZURES/EPILEPSY N HEADACHES/MIGRAINES N VASCULAR DISEASE N HIP PAIN N Blood Disorder N DIZZINESS N HEAD TRAUMA OR INJURY N HEART DISEASE/HEART PROBLEMS N MULTIPLE SCLEROSIS N CARDIAC ARRHYTHMIA N CANCER: SPECIFY N ANESTHESIA COMPLICATIONS N ATRIAL FIBRILLATION N AUTOIMMUNE DISEASE N Past Encounters Encounter ID Performer Location Encounter Start Date Encounter Closed Date Diagnosis/Indication Diagnosis SNOMED-CT Code Diagnosis ICD10 Code Diagnosis Note [id number] Perfecto Garibay MD [facility] [place] [address] [place] [address] 08/02/2022 00:00:00 08/02/2022 13:13:05 [id number] Perfecto Garibay MD [facility] [place] [address] [place] [address] 04/02/2023 14:59:56 04/03/2023 11:58:49 Pain in right hand [id number] M79.641 [id number] Perfecto Garibay MD [facility] [place] [address] [place] [address] 05/05/2023 14:11:31 05/05/2023 14:38:02 History of left total knee replacement [id number] Z96.652 Health Concerns Section Related Observation LastModified by Organization Detai ls LastModified Time None Recorded Concern Status LastModified by Organization Details LastModified Time None Recorded Advance Directives Directive None Recorded Payers Insurance Date Sequence Insurance Name Policy Number Policy Morelos Covered Member ID Morelos Member ID Guarantor Name 05/06/2023 1 [facility] (MEDICARE REPLACEMENT/A DVANTAGE - HMO) [id number] Mitch Hammonds [id number] Mitch Hammonds
--- OUTSIDE RECORDS SUMMARY | 2025-06-09 09:02 | XMS_ITS | Clinical Summary ---
Author Organization [facility] Address [address] [place] [address] Care Team Providers Care Resume Specialist Name Role Phone Yandel Klein MD Primary [...] use Hyperlipidemia 08/17/2012 Overview (02/21/2017): HYPERLIPIDEMIA NEC/NOS Surgical History Surgery Date Site/Laterality Comments OTHER SURGICAL HISTORY sleep disturbance ( snoring ): CPAP Medical History Medical History Date Comments Hx Other Medical chronic back pa in Hx Other Medical vitamin D defic iency Hx Other Medical hiatal hernia Hyperlipidemia Hyperlipidemia Anxiety disorder Anxiety Depression Depression Hx Other Medical sleep disturban ce ( snoring ) Family History Medical History Relation Name Comments Other Other No family histo ry of Cancer, prostate; Relation Name Status Comments Other Social History Tobacco Use Types Packs/Day Years Used Date Smoking Tobacco: Former Cigarettes Q uit: 1980 Tobacco Cessation:Counseling Given: Not Answered Alcohol Use [...] on file 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 Gender Identity Not on file Sexual Orientation Not on file Obstetrics History Last Filed Vital Signs Vital Sign Reading [...] 07/19/2023 2:33 AM CDT Plan of Treatment Health Maintenance Due Date Last Done Comments Colon Cancer Screening-Colonoscopy 1957 Depression Screening 1957 Prostate Cancer Screening-PSA 1957 DTaP/Tdap/Td Vaccine (1 - Tdap) 1968 Hepatitis B Screening 1975 Pneumococcal vaccine 65+ (1 of 1 - PCV) 2007 Zoster Vaccine (1 of 2) 2007 Abdominal Aortic Aneurysm (AAA) Screen 2022 Well Visit 65+ 2022 Fall Risk Assessment 07/20/2024 07/20/2023 Influenza Vaccine (#1) 2025 09/11/2022, 2020 Hepatitis C Screening Completed 07/19/2023, 023 Procedures Procedure Name Priority Date/Time Associated Diagnosis Comments HEPATITIS PANEL, ACUTE Routine 07/19/2023 12:12 AM CDT from Last 3 Months or Most Recently Relevant to Health Maintenance Results * Hepatitis panel, acute Blood (07/19/2023 12:12 AM CDT) Hep A IgM Nonreactive Nonreactive Hep B core IgM Nonreactive Nonreactive [facility] Hep C Ab Nonreactive Nonreactive [facility] Comment:Antibodies to HCV no t detected. Does NOT exclude the possibility of recent exposure to HCV. Current interpretive data was last revised on 22 HepBsAg Nonreactive Nonreactive [facility] Blood 07/19/2023 12:1 2 AM CDT 07/19/2023 12:25 AM CDT Tonya Mcgovern MD LAB MICROBIOLOGY - GENERAL OR DERABLES Final Result [facility] Department of [place] [address] from Last 3 Months or Most Recently Relevant to Health Maintenance Insurance MEDICARE ADVANTAGE MEDICARE ADVANTAGE [facility] MEDICARE ADVANTAGE Advance Directives For more information, please contact: [phone] * Full Code (Latest Code Status on File) Date Activated Date Inactivated Comments 07/19/2023 2:51 AM 07/20/2023 6:39 PM Care Teams Resume Specialist Relationship Specialty Start Date End Date Yandel Klein MD [address] [facility] [address] [place] [address] PCP - General Family Medicine 07/18/23
[2025-06-09 10:36] LABS: Alanine Aminotransferase 27 U/L (6-50); Albumin Level 4.2 g/dL (3.5-5.1); Alkaline Phosphatase 47 U/L (38-126); Anion Gap 8 mmol/L (4-12); Aspartate Amino Transferase 31 U/L (17-59); Bilirubin,Total 0.5 mg/dL (0.2-1.3); Blood Urea Nitrogen 21 mg/dL (9-20); Calcium 9.6 mg/dL (8.4-10.2); Carbon Dioxide 26 mmol/L (22-30); Chloride 104 mmol/L (98-107); Estimated Glomerular Filt Rate 45; Glucose 97 mg/dL (65-110); Potassium 4.0 mmol/L (3.4-5.0); Sodium 138 mmol/L (137-145); Total Protein 7.0 g/dL (6.3-8.2)
[2025-06-09 12:08] LABS: Hemoglobin A1C 6.3 % (<5.7)
== END 2025-06-09 08:58 | disposition home or self-care (01) ==
PROVIDERS: PCP Family Medicine
DX: I12.9 Hypertensive chronic kidney disease with stage 1 through stage 4 chronic kidney disease, or unspecified chronic kidney disease (principal); N18.9 Chronic kidney disease, unspecified; R73.01 Impaired fasting glucose
CPT/HCPCS: 36415; 80053; 83036

== ENCOUNTER 2025-07-05 08:37 | Outpatient (CLI) | payer MEDICARE, SELFPAY ==
--- NOTE | ~2025-07-05 | MR_ITS ---
MRI of the lumbar spine Clinical History: Unsteadiness Technique: Axial T2-weighted and gradient images, and sagittal T1-weighted, T2- weighted, and STIR images were acquired. Findings: There is no fracture or subluxation of the lumbar spine. Vertebral bodies maintain normal height and line. No bone marrow signal reality seen. At L1-L2, there is no disc bulge or herniation. There is moderate facet arthropathy. No central canal stenosis or neural foraminal narrowing. At L2-L3, there is no disc bulge or herniation. There is mild to moderate facet arthropathy. No central canal stenosis or neural foraminal narrowing. At L3-L4, there is minimal disc bulge with mild facet arthropathy. No central canal stenosis or neural foraminal narrowing. At L4-L5, there is mild disc bulge with severe facet arthropathy. No central canal stenosis or neural foraminal narrowing. At L5-S1, there is diffuse disc bulge with severe facet arthropathy. There is severe left neural foraminal narrowing. Right neural foramen preserved. No central canal stenosis. Paravertebral soft tissues are unremarkable. Impression: Severe left neural foraminal narrowing at L5-S1. Additional mild degenerative changes overall, as above. Reviewed, dictated and finalized at [facility]. Impression: Severe left neural foraminal narrowing at L5-S1. Additional mild degenerative changes overall, as above.
== END 2025-07-05 08:38 | disposition home or self-care (01) ==
LOC: MICIMG 08:39
PROVIDERS: PCP Family Medicine; Visit Provider Physician Assistant
DX: M48.07 Spinal stenosis, lumbosacral region (principal); M47.816 Spondylosis without myelopathy or radiculopathy, lumbar region; M47.817 Spondylosis without myelopathy or radiculopathy, lumbosacral region; R26.81 Unsteadiness on feet
CPT/HCPCS: 72148

== ENCOUNTER 2025-08-04 07:35 | Outpatient (CLI) | payer MEDICARE, SELFPAY ==
--- NOTE | ~2025-08-04 | CT_ITS ---
EXAMINATION: [id number] DATE: 08/04/2025 08:08 INDICATION: Lumbar spondylosis. TECHNIQUE: Computed tomography (CT) of the lumbar spine was performed without intravenous contrast. Automated exposure control and iterative reconstruction technique were employed. The dose-length product was 1159.78 mGy-cm. COMPARISON: Lumbar spine MRI 07/05/2025, thoracic spine radiographs 05/26/2018 FINDINGS: There are small ribs at L1. There is 3 mm anterolisthesis of L5 on S1. There is 9 degrees levocurvature of lumbar spine. There is mild chronic anterior wedging of T11 and T12 vertebral bodies. There is mildly decreased disc height at L4-L5 and severely decreased disc height at L5-S1. The following disc levels are specifically discussed: L1-L2: The disc is bulging. There is mild bilateral facet joint osteoarthritis. There is mild right neural foraminal stenosis. There is mild central canal stenosis. L2-L3: The disc is bulging. There is mild bilateral facet joint osteoarthritis. There is mild bilateral neural foraminal stenosis. There is mild central canal stenosis. L3-L4: The disc is bulging. There is moderate right and mild left facet joint osteoarthritis. There is mild bilateral neural foraminal stenosis. There is mild central canal stenosis. L4-L5: The disc is bulging. There is severe bilateral facet joint osteoarthritis. There is mild bilateral neural foraminal stenosis. There is mild central canal stenosis. L5-S1: The disc is bulging. There is severe bilateral facet joint osteoarthritis. There is mild right and moderate left neural foraminal stenosis. There is mild central canal stenosis. IMPRESSION: 1. Severe lower lumbar spondylosis. Reviewed, dictated and finalized at location E.
--- OUTSIDE RECORDS SUMMARY | 2025-08-04 08:05 | XMS_ITS | Clinical Summary ---
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 Does NOT exclude the possibility of recent exposure to HCV. Current interpretive data was last revised on 22 HepBsAg Nonreactive Nonreactive [facility] Blood 07/19/2023 12:1 2 AM CDT 07/19/2023 12:25 AM CDT Tonya Mcgovern MD LAB MICROBIOLOGY - GENERAL OR DERABLES Final Result [facility] Department [place] [address] from Last 3 Months or Most Recently Relevant to Health Maintenance Insurance MEDICARE ADVANTAGE MEDICARE ADVANTAGE [facility] MEDICARE ADVANTAGE Advance Directives For more information, please contact: [phone] * Full Code (Latest Code Status on File) Date Activated Date Inactivated Comments 07/19/2023 2:51 AM 07/20/2023 6:39 PM Care Teams Special Weapons And Tactics Officer Relationship Specialty Start Date End Date Yandel Klein MD [address] [facility] [address] [place] [address] PCP - General Family Medicine 07/18/23
--- OUTSIDE RECORDS SUMMARY | 2025-08-04 08:05 | XMS_ITS | Clinical Summary ---
Author Organization [facility] Address [address] [place] [address] Care Team Providers Care Transition Assistant Name Role Phone Yandel Klein MD Primary Care Provider [phone] Source Comments [facility],non-owned Affiliates and Associated Physician Practices is amultiple site organization consisting of ambulatory clinics and hospital sitesin [place], [place] and [place]. This disclosure is being madepursuant to the Care Everywhere program and may not contain all information available regarding this patient. Last updated 18.[facility] Allergies Active Allergy Reactions Criticality Noted Date [...] 2007 ZOSTER VACCINE (1 of 2) 2007 DEPRESSION SCREENING 11/17/2024 MEDICARE AWV CALENDAR YEAR 2024 COVID-19 VACCINE (1 - 2023-2 5 season) 2025 INFLUENZA VACCINE (#1) 2025 Respiratory Syncytial Virus [...] patient's age to complete this topic Insurance [id number] MANAGED MEDICARE ADV Member Subscriber Plan / Payer (Ef fective 2023-Present) Name:Yoni Siegel Relation to Subscriber:Self Name:Yoni Siegel Payer ID:[id number] (NAIC) Type:Medicare-Managed Care Address: [place] [id number] MANAGED MEDICARE ADV MANAGED MEDICARE ADV MANAGED MEDICARE ADV Care Teams Transition Assistant Relationship Specialty Start Date End Date Yandel Klein MD [address] [place] [address] PCP - General Family Medicine 03/10/17
== END 2025-08-04 07:36 | disposition home or self-care (01) ==
PROVIDERS: PCP Family Medicine; Visit Provider Neurological Surgery
DX: M47.896 Other spondylosis, lumbar region (principal)
CPT/HCPCS: 72131

== ENCOUNTER 2025-08-09 09:38 | Outpatient (CLI) | payer MEDICARE, SELFPAY ==
--- OUTSIDE RECORDS SUMMARY | 2025-08-09 10:25 | XMS_ITS | Clinical Summary ---
Author Organization [facility] Address [address] [place] [address] Care Team Providers Care Personal Lines Insurance Agent Name Role Phone Yandel Klein MD Primary Care Provider [phone] Source Comments [facility],non-owned Affiliates and Associated Physician Practices is amultiple site organization consisting of ambulatory clinics and hospital sitesin [place], [place], [place] and [place]. This disclosure is being madepursuant to the Care Everywhere program and may not contain all information available regarding this patient. Last updated 18.[facility] Allergies Active Allergy Reactions Criticality Noted Date [...] patient's age to complete this topic Insurance [id number] MANAGED MEDICARE ADV Member Subscriber Plan / Payer (Ef fective 2023-Present) Name:Yoni Siegel Relation to Subscriber:Self Name:Yoni Siegel Payer ID:[id number] (NAIC) Type:Medicare-Managed Care Address: [place] [id number] MANAGED MEDICARE ADV MANAGED MEDICARE ADV MANAGED MEDICARE ADV Care Teams Personal Lines Insurance Agent Relationship Specialty Start Date End Date Yandel Klein MD [address] [place] [address] PCP - General Family Medicine 03/10/17
--- OUTSIDE RECORDS SUMMARY | 2025-08-09 10:25 | XMS_ITS | Clinical Summary ---
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 Does NOT exclude the possibility of recent exposure to HCV. Current interpretive data was last revised on 22 HepBsAg Nonreactive Nonreactive [facility] Blood 07/19/2023 12:1 2 AM CDT 07/19/2023 12:25 AM CDT Tonya Mcgovern MD LAB MICROBIOLOGY - GENERAL OR DERABLES Final Result [facility] Department [place] [address] from Last 3 Months or Most Recently Relevant to Health Maintenance Insurance MEDICARE ADVANTAGE MEDICARE ADVANTAGE [facility] MEDICARE ADVANTAGE Advance Directives For more information, please contact: [phone] * Full Code (Latest Code Status on File) Date Activated Date Inactivated Comments 07/19/2023 2:51 AM 07/20/2023 6:39 PM Care Teams Director Of Design Relationship Specialty Start Date End Date Yandel Klein MD [address] [facility] [address] [place] [address] PCP - General Family Medicine 07/18/23
[2025-08-09 11:05] LABS: Hematocrit 47.4 % (42.0-52.0); Hemoglobin 15.3 g/dL (14.0-18.0); Mean Corpuscular HGB Conc 32.3 g/dl (32-36); Mean Corpuscular Hemoglobin 30.9 pg (26-34); Mean Corpuscular Volume 95.8 fl (80-100); Platelet Count Result 158 k/mm3 (150-375); Red Blood Count 4.95 M/mm3 (4.6-6.20); White Blood Count 5.9 K/mm3 (4.5-10.0)
[2025-08-09 11:06] LABS: Add Urine Microscopic? NO; Appearance Urine Clear (Clear); Glucose Urine UA Negative (Negative); Leukocyte Esterase Ur Negative LEU/UL (Negative); Nitrate Urine Negative (Negative); Specific Grav Ur 1.017 (1.001-1.035)
[2025-08-09 11:09] LABS: INR 1.0; Prothrombin Time 13.1 Seconds (11.1-14.7)
[2025-08-09 11:11] LABS: Partial Thromboplastin Time 29.0 Seconds (22.3-36.8)
[2025-08-09 11:16] LABS: Anion Gap 7 mmol/L (4-12); Blood Urea Nitrogen 22 mg/dL (9-20); Calcium 9.4 mg/dL (8.4-10.2); Carbon Dioxide 27 mmol/L (22-30); Chloride 104 mmol/L (98-107); Estimated Glomerular Filt Rate 48; Glucose 115 mg/dL (65-110); Potassium 4.3 mmol/L (3.4-5.0); Sodium 138 mmol/L (137-145)
== END 2025-08-09 09:39 | disposition home or self-care (01) ==
LOC: ANHSURGERY 09:42
PROVIDERS: PCP Family Medicine; Visit Provider Neurological Surgery
DX: M47.816 Spondylosis without myelopathy or radiculopathy, lumbar region (principal)
CPT/HCPCS: 36415; 80048; 81003; 85027; 85610; 85730

== ENCOUNTER 2025-08-26 02:00 | Day surgery (SDC) | payer MEDICARE, SELFPAY ==
[2025-08-09 10:08] VITALS: PULSE 83; RESP 16; TEMP 36.7; O2SAT 97; BMI 34.5
--- NOTE | 2025-08-09 10:24 | PC.NURSE ---
Addendum entered by Chantal Aguilar RN 08/09/25 10:32: Pt to bring CPAP w him to stay overnight RUFUS Original Note: [facility] has started construction of its new state of the art ER which will open Spring 2026. With this, we anticipate parking may be a challenge for some our surgical patients and families. Parking spaces are limited but are available for all Surgical, obstetrics, and ER patients sharing this lot. If you arrive and find you are having a hard time finding a parking space, please note that we understand the challenges, please drive around the hospital and park near Hospital Entrance 1. When you enter this entrance, you can ask a volunteer to direct or take you back to the surgical waiting area to check in. We appreciate everyone?s understanding of these expected challenges while we build for your future. Report to the Outpatient Waiting Room, entrance under the green pavilion located off [facility], at time _06:00am on date ___08/26/25____. Planned Procedure Time: _07:30am .? Time changes happen often and if your time is changed the preop area will call you the afternoon before. - You and your visitor will be asked to self-screen and do not enter if you have any COVID symptoms. Please call surgeon if you need to reschedule. - A mask is optional within the hospital at this time. Patients may have clear liquids (water, carbonated beverages, clear teas, apple juice) until 3 hours prior to surgery with a maximum of 20 ounces. - No food from midnight until time of surgery and no smoking, or chewing tobacco (or any form of nicotine). No chewing gum, candy or mints.(04:30am) Take only the following medications with a SIP of water on the morning of surgery: ___Buspirone & Venlafaxine, Tylenol if needed DO NOT STOP ANY OF YOUR OTHER PRESCRIPTION MEDICATIONS PRIOR TO SURGERY EXCEPT THE FOLLOWING Hold all vitamins and supplements for 3 days per anesthesiologist.Date of last dose is 08/22/25 Medications to discontinue per physician NO Aspirin or NSAIDS/MOTRIN/ADVIL for [address] Brown Date to take last dose__08/18/25 Please no make-up, nail yakut, hairspray, perfume, deodorant, or body powder the day of surgery.? No jewelry (including any body piercings) or valuables the day of surgery, leave them at home.? Please take a shower or bath the night before, or the morning of, surgery with an antibacterial soap.?GOLD DIAL- Wear comfortable, loose fitting clothing.? Children are encouraged to wear pajamas. - Jewelry must be removed prior to entering the operating room.? Rings and piercings that are not removed may be cut off. - The hospital will not accept responsibility for valuables.? - Please leave all valuables, including medications, at home the day of surgery. If you are going home after surgery, a licensed dump truck driver off highway must drive you home.? - NO public transportation without another adult if you receive anesthesia. - We recommend that an adult stay with you for 24 hours following discharge. - We also recommend that you do not drive, make important decision, drink alcoholic beverages, or take any drugs that were not prescribed by your health care provider for at least 24 hours after your discharge time. Follow any additional instructions given to you from your surgeon. Telephone instructions given to ___Patient and asked if any additional questions and then verbalized understanding. Patient advised to call surgeon office or pre surgery nurse liaison [phone] if any additional questions.
--- NOTE | 2025-08-25 15:08 | WPDANESEPPF ---
Anes - Initial Pre Proc Eval Procedure: Operation Date: 08/26/25 07:30 Proposed Procedures p Stereotactic Computer Assisted 7-D Left L5, S1 Transforaminal Lumbar Interbody Fusion - Cal Brown MD Date/Time: 08/25/25 15:08 Surgeon: Cal Brown MD Pre Op Diagnosis: lumbar spondylosis Patient Data Age: 70 Gender: M Height: 1.73 m Weight: 103 kg Last Vital Signs Temp 98.0 F 08/09/25 10:08 Pulse 83 08/09/25 10:08 Resp 16 08/09/25 10:08 Pulse Ox 97 08/09/25 10:08 O2 Del Method Room Air 08/09/25 10:08 Allergies Allergy/AdvReac Type Severity Reaction Status Date / Time amoxicillin (From Augmentin) Allergy Intermediate Itching Verified 08/09/25 10:03 clavulanic acid (From Allergy Intermediate Itching Verified 08/09/25 10:03 Augmentin) cefuroxime AdvReac Severe NAUSEA, Verified 08/09/25 10:03 DIARHEA metoclopramide (From Reglan) AdvReac Intermediate Agitated, Verified 08/09/25 10:03 Anxious Home Medications ?Medication ?Instructions ?Recorded ?Confirmed ?Type cholecalciferol (vitamin D3) 25 1,000 unit PO DAILY 10/06/19 08/09/25 History mcg (1,000 unit) capsule cetirizine 10 mg capsule (All Day 10 mg PO DAILY PRN ALLERGIES 04/26/22 08/09/25 History Allergy (cetirizine)) testosterone (AndroGel) 3 pump topical DAILY #300 grams 08/01/23 08/09/25 Rx hydroxyzine HCl 50 mg tablet 50 mg PO QHS PRN anxiety or 11/14/23 08/09/25 Rx insomnia #90 tabs vitamin B complex (B 1 tablet PO DAILY 01/12/24 08/09/25 History Complex-Vitamin B12 tablet) pravastatin 40 mg tablet See Rx Instructions .Route 09/16/24 08/09/25 Rx .COMPLEX #100 tabs aspirin 81 mg tablet,delayed 81 mg PO DAILY #30 tabs 09/30/24 08/09/25 Rx release ferrous sulfate 325 mg (65 mg 325 mg PO DAILY 10/12/24 08/09/25 History iron) tablet (Feosol) ketoconazole 2 % shampoo 1 applic topical 2XW #360 mL 03/03/25 08/09/25 Rx venlafaxine 75 mg capsule,extended See Rx Instructions .Route 03/09/25 08/09/25 Rx release 24 hr .COMPLEX #90 caps clindamycin HCl 150 mg capsule 600 mg (4 x 150 mg) PO .COMPLEX #4 03/17/25 08/09/25 Rx (Cleocin HCl) caps buspirone 10 mg tablet See Rx Instructions .Route 03/30/25 08/09/25 Rx .COMPLEX #200 tabs azelastine 137 mcg (0.1 %) nasal 137 mcg (0.137 mL) intranasal Q12H 05/17/25 08/09/25 Rx spray #30 mL fluticasone propionate 50 2 spray intranasal DAILY #16 grams 05/17/25 08/09/25 Rx mcg/actuation nasal spray,suspension (Flonase Allergy Relief) omeprazole 40 mg capsule,delayed 40 mg PO DAILY #90 caps 06/16/25 08/09/25 Rx release empagliflozin 25 mg tablet 25 mg PO DAILY #30 tabs 08/02/25 08/09/25 Rx (Jardiance) tamsulosin 0.4 mg capsule 0.4 mg PO QHS #90 caps 08/02/25 08/09/25 Rx lisinopril 10 mg tablet See Rx Instructions .Route 08/23/25 Rx .COMPLEX #50 tabs Patient hx anesthesia problems: none Family hx anesthesia problems: none Results Review: All pre-operative results and documents have been reviewed as part of the pre-operative evaluation. FORMERLY [facility], [facility] Past Medical History Medical History Dysphagia, oropharyngeal Family history of colon cancer in father Change in bowel habits Diarrhea Acute pain of left knee Anemia, unspecified Arm paresthesia, right Burning sensation of feet Chronic GERD Chronic kidney disease, stage III (moderate) Dependence on other enabling machines and devices Dietary counseling and surveillance (10/16/17) Elevated blood-pressure reading without diagnosis of hypertension Enlarged prostate with lower urinary tract symptoms (LUTS) Essential hypertension Family history of colon cancer LONNY (generalized anxiety disorder) Hiatal hernia History of kidney stones Hy 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 Hyperlipidemia Hypogonadism in male Itching Left knee tendonitis Localized osteoarthritis of left knee Low TSH level Memory difficulties Mid back pain Mild episode of recurrent major depressive disorder Need for hepatitis C screening test Neuropathy involving both lower extremities Numbness OAB (overactive bladder) Obesity (BMI 30.0-34.9) Polyosteoarthritis, unspecified Post-nasal drip Pre-op exam Primary osteoarthritis of left knee Pure hypercholesterolemia Right-sided low back pain without sciatica Tendonitis of left rotator cuff URI, acute Varicose veins of both lower extremities Wellness examination Surgical History Surgical History History of Aaron fundoplication History of left knee replacement Family History Family History Mother Family history of muscular dystrophy Father Carcinoma of colon Sibling Family history of diabetes mellitus in first degree relative Family history of coronary artery disease Other Diabetes mellitus Hypertension Social History Social History Smoking packs per day: 0 Smoking cigarettes per day: 0.0 Years smoked: 7 Smoking pack-years: 0.00 Smoking status: Former smoker Tobacco type: cigarettes Smoking end date: 11/17/77 Alcohol intake: current Drinks per week: 3 Substance use: never Substance use type: does not use Living arrangements: with family Additional living arrangements comments: Spiritual care concerns: No Anes - Eval Final PreProcedure Day of Procedure 08/25/25 15:08 Patient weight: obese Heart: regular rate and rhythm Lungs: clear to auscultation Airway: Mallampati scale class III Neurological: alert and oriented Last oral intake: >/= 8 hours ASA classification: III Emergent: no Anesthetic plan: proceed Anesthesia type and monitoring: general ETT and standard monitoring Results Review: All pre-operative results and documents have been reviewed as part of the pre-operative evaluation. Informed Consent: The patient's anesthetic plan and its attendant risks and benefits were discussed with the patient/family/POA. Questions were solicited and answers provided to the satisfaction of the patient/family/POA.
[2025-08-26] VITALS (13 sets, daily range): BP systolic 86–118; BP diastolic 55–82; PULSE 72–110; RESP 12–20; TEMP 36.2–37.2; O2SAT 94–97; BMI 33.4
--- NOTE | ~2025-08-26 | XR_ITS ---
EXAMINATION: XR fluoroscopy no charge DATE: 08/26/2025 11:02 INDICATION: Left L5-S1 lumbar fusion TECHNIQUE: 2 fluoroscopic images of the lumbar spine were obtained during procedure performed by Dr. Brown. Radiologist was not present for the imaging or procedure. The amount of fluoroscopy time used during this procedure was 0.6 minutes. Total DAP was 5.51 Gycm^2. COMPARISON: CT dated 08/04/2025 FINDINGS: Images demonstrate L5-S1 anterior and posterior spinal fusion with bilateral vertical jose luis and pedicle screw fixation and interbody fusion device at the left side of the disc space. Hemostats likely external to the patient projects of the right ilium on the frontal image. IMPRESSION: 1. Fluoroscopy utilized during combined instrumented L5-S1 anterior and posterior spinal fusion. Reviewed, dictated and finalized at location A. IMPRESSION: 1. Fluoroscopy utilized during combined instrumented L5-S1 anterior and posteri or spinal fusion.
--- OUTSIDE RECORDS SUMMARY | 2025-08-26 02:03 | XMS_ITS | Clinical Summary ---
Author Organization [facility] Address [address] [place] [address] Care Team Providers Care Staffing Manager Name Role Phone Yandel Klein MD Primary Care Provider [phone] Source Comments [facility],non-owned Affiliates and Associated Physician Practices is amultiple site organization consisting of ambulatory clinics and hospital sitesin [place], [place], [place] and [place]. This disclosure is being madepursuant to the Care Everywhere program and may not contain all information available regarding this patient. Last updated 18.[facility] Allergies Active Allergy Reactions Criticality Noted Date [...] patient's age to complete this topic Insurance [id number] MANAGED MEDICARE ADV Member Subscriber Plan / Payer (Ef fective 2023-Present) Name:Yoni Siegel Relation to Subscriber:Self Name:Yoni Siegel Payer ID:[id number] (NAIC) Type:Medicare-Managed Care Address: [place] [id number] MANAGED MEDICARE ADV MANAGED MEDICARE ADV MANAGED MEDICARE ADV Care Teams Staffing Manager Relationship Specialty Start Date End Date Yandel Klein MD [address] [place] [address] PCP - General Family Medicine 03/10/17
[2025-08-26] MEDS: LACTATED RINGERS 1,000 ML 30 ML IV CONT ×2 (07:00→11:46)
--- NOTE | 2025-08-26 07:19 | WPDHPUPDATE1 ---
History and Physical Update Update Date/Time: 08/26/25 07:19 History and Physical has been reviewed, including an updated exam of the patient. There are NO changes in the patient's condition. Risks, benefits, and alternatives have been discussed and questions answered. Patient agrees to proceed with procedure.
--- NOTE | 2025-08-26 07:19 | PM.IMHP ---
H&P: HPI History of Present Illness Date/Time: 08/26/25 07:19 Chief Complaint: 70-year-old gentleman with lumbar spondylosis and severe left L5-S1 neural foraminal stenosis and left L5 radiculopathy. He has failed conservative measures. He is now here for a left L5-S1 transforaminal lumbar interbody fusion. [facility] Past Medical History Medical History Dysphagia, oropharyngeal Family history of colon cancer in father Change in bowel habits Diarrhea Acute pain of left knee Anemia, unspecified Arm paresthesia, right Burning sensation of feet Chronic GERD Chronic kidney disease, stage III (moderate) Dependence on other enabling machines and devices Dietary counseling and surveillance (10/16/17) Elevated blood-pressure reading without diagnosis of hypertension Enlarged prostate with lower urinary tract symptoms (LUTS) Essential hypertension Family history of colon cancer LONNY (generalized anxiety disorder) Hiatal hernia History of kidney stones Hy 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 Hyperlipidemia Hypogonadism in male Itching Left knee tendonitis Localized osteoarthritis of left knee Low TSH level Memory difficulties Mid back pain Mild episode of recurrent major depressive disorder Need for hepatitis C screening test Neuropathy involving both lower extremities Numbness OAB (overactive bladder) Obesity (BMI 30.0-34.9) Polyosteoarthritis, unspecified Post-nasal drip Pre-op exam Primary osteoarthritis of left knee Pure hypercholesterolemia Right-sided low back pain without sciatica Tendonitis of left rotator cuff URI, acute Varicose veins of both lower extremities Wellness examination Surgical History Surgical History History of Aaron fundoplication History of left knee replacement Family History Family History Mother Family history of muscular dystrophy Father Carcinoma of colon Sibling Family history of diabetes mellitus in first degree relative Family history of coronary artery disease Other Diabetes mellitus Hypertension Social History Social History Smoking packs per day: 0 Smoking cigarettes per day: 0.0 Years smoked: 7 Smoking pack-years: 0.00 Smoking status: Former smoker Tobacco type: cigarettes Smoking end date: 11/17/77 Alcohol intake: current Drinks per week: 3 Substance use: never Substance use type: does not use Living arrangements: with family Additional living arrangements comments: Spiritual care concerns: No Meds Home Medications and Allergies Home Medications ?Medication ?Instructions ?Recorded ?Confirmed ?Type cholecalciferol (vitamin D3) 25 1,000 unit PO DAILY 10/06/19 08/09/25 History mcg (1,000 unit) capsule cetirizine 10 mg capsule (All Day 10 mg PO DAILY PRN ALLERGIES 04/26/22 08/09/25 History Allergy (cetirizine)) testosterone (AndroGel) 3 pump topical DAILY #300 grams 08/01/23 08/09/25 Rx hydroxyzine HCl 50 mg tablet 50 mg PO QHS PRN anxiety or 11/14/23 08/09/25 Rx insomnia #90 tabs vitamin B complex (B 1 tablet PO DAILY 01/12/24 08/09/25 History Complex-Vitamin B12 tablet) pravastatin 40 mg tablet See Rx Instructions .Route 09/16/24 08/09/25 Rx .COMPLEX #100 tabs aspirin 81 mg tablet,delayed 81 mg PO DAILY #30 tabs 09/30/24 08/09/25 Rx release ferrous sulfate 325 mg (65 mg 325 mg PO DAILY 10/12/24 08/09/25 History iron) tablet (Feosol) ketoconazole 2 % shampoo 1 applic topical 2XW #360 mL 03/03/25 08/09/25 Rx venlafaxine 75 mg capsule,extended See Rx Instructions .Route 03/09/25 08/09/25 Rx release 24 hr .COMPLEX #90 caps clindamycin HCl 150 mg capsule 600 mg (4 x 150 mg) PO .COMPLEX #4 03/17/25 08/09/25 Rx (Cleocin HCl) caps buspirone 10 mg tablet See Rx Instructions .Route 03/30/25 08/09/25 Rx .COMPLEX #200 tabs azelastine 137 mcg (0.1 %) nasal 137 mcg (0.137 mL) intranasal Q12H 05/17/25 08/09/25 Rx spray #30 mL fluticasone propionate 50 2 spray intranasal DAILY #16 grams 05/17/25 08/09/25 Rx mcg/actuation nasal spray,suspension (Flonase Allergy Relief) omeprazole 40 mg capsule,delayed 40 mg PO DAILY #90 caps 06/16/25 08/09/25 Rx release empagliflozin 25 mg tablet 25 mg PO DAILY #30 tabs 08/02/25 08/09/25 Rx (Jardiance) tamsulosin 0.4 mg capsule 0.4 mg PO QHS #90 caps 08/02/25 08/09/25 Rx lisinopril 10 mg tablet See Rx Instructions .Route 08/23/25 Rx .COMPLEX #50 tabs Allergies Allergy/AdvReac Type Severity Reaction Status Date / Time amoxicillin (From Augmentin) Allergy Intermediate Itching Verified 08/09/25 10:03 clavulanic acid (From Allergy Intermediate Itching Verified 08/09/25 10:03 Augmentin) cefuroxime AdvReac Severe NAUSEA, Verified 08/09/25 10:03 DIARHEA metoclopramide (From Reglan) AdvReac Intermediate Agitated, Verified 08/09/25 10:03 Anxious Exam Narrative: awake alert no acute distress MAEW 03/21 including IP/Q/H/PF/DF/EHL regular rate normal respirations Assessment and Plan Assessment and plan (1) Lumbar spondylosis: Code(s): M47.816 - Spondylosis without myelopathy or radiculopathy, lumbar region Status: Acute Assessment and Plan: 70-year-old gentleman with lumbar spondylosis and severe left L5-S1 neural foraminal stenosis and left L5 radiculopathy. He has failed conservative measures. He is now here for a left L5-S1 transforaminal lumbar interbody fusion.
[2025-08-26] MEDS: ceFAZolin 2 GM in SODIUM CHLORIDE 0.9% IV 50 ML 100 ML IVPB ×2 (07:34→21:20)
[2025-08-26] MEDS: BUPIVACAINE/EPINEPHRINE 0.5% 50 ML VIAL 30 ML INFILTRATE (08:29)
--- NOTE | 2025-08-26 11:39 | P.OP_ITS ---
Procedure Note - Detailed Date of Procedure 08/26/25 Pre-op Diagnosis lumbar spondylosis Post-op Diagnosis Same Procedure Performed L5-S1 left-sided transforaminal lumbar interbody fusion Arthrodesis from L5-S1 bilaterally using localized autograft as well as allograft. Instrumentation from L5-S1 Interbody cage placement at L5-S1 on the left side with a CoreLink lordotic cage 10 mm x 26 mm x 7? lordosis Use of intraoperative navigation Surgeon Cal Brown MD Anesthesia General Indications Left L5-S1 severe foraminal stenosis and radiculopathy Findings Severe left L5-S1 foraminal stenosis Description of Procedure Once the patient was intubated the patient was positioned prone onto the open Musa table. All bony prominences were padded. Lateral fluoroscopy was brought in to desire the L5-S1 region a midline incision was planned. The patient was then prepped and draped sterile fashion. Final time-out was performed indicating correct patient procedure and site. Local anesthetic was infiltrated along the incision line. I made incision with a scalpel blade. Down to the fascia. Self-retaining retractors were obtained and hemostasis was obtained. Following this I used Bovie electrocautery to open fascia midline perform a subperiosteal dissection out to the transverse processes of L5 the sacral ala of S1. The self-retaining retractors were then replaced all soft tissue was removed from the lamina spinous process and sacrum. At this point I connected the navigation arc and hooked onto the S1 spinous process. This was secure. We then brought in the 70 navigation system. This was then set up and tested for accuracy. At this point I used navigation to place the pedicle screws at L5 bilaterally and S1 bilaterally. We placed 6.5 x 45 the right at S1 and 7 5 x 40 on the left at S1 with 6.5 x 50 screws bilaterally at L5. There were no technical difficulties with any of his screw placements. We then confirmed with lateral x-ray and AP x-ray good position of the screws. Of note the right S1 screw appeared to be bilateral but I did remove this screw and palpated the tract with a ball-tip probe and confirmed that it was in solid bone without any breaches. The screw was then replaced with a 7.5 x 40 screw. At this point we moved onto the decompression portion of the case I used a combination Luis Smith and high-speed bur to drill trough laminectomies on the left-sided L1 to the midline of spine the spinous process. Spinous process was then and additional lamina was removed. I then used high- speed bur to drill through the pars on the left side at L5-S1. I then removed the inferior articulating facet and saved this for later morselization. At this point I used a combination of upgoing curettes and would since probes to identify the L5 and S1 pedicle. I then used Toro Smith to remove any additional bone along the pedicle through to the foramen. This was fully free at this point brought in a nerve retractor to retract the thecal sac. Once by cyst and had a good handle on the thecal sac I was able to use bipolar electrocautery to any veins across the disc space. I then cut into the disc space with an 11 blade. The actual opening of the disc space was very narrow so I used a disc space finer to enter the disc space. I did this with lateral fluoroscopy guidance. At this point I brought in a series of Mckenna to remove the disc and I used a curette and raegan Smith to most of the disc within the disc space. I then decorticated and prepared the endplates by scraping the endplate with variety of curettes. At this point we placed a trial 10 mm trial and this appeared to be solidly fixed into the endplates and looked well apposed on x-ray. At this point a trial was removed I then packed the disc space with patient's own bone as well as allograft form of Magnetos. The cage was then packed with autograft and allograft. The cage was then inserted under fluoroscopic guidance. Was deemed to be in good position. The bpm solution architect was removed hemostasis was obtained. The wound was irrigated. At this point I then moved onto the arthrodesis portion of the case where I decorticated the transverse processes at L5-S1 bilaterally. This was then supplemented with allograft and autograft. Once this was complete the heads were placed onto the screws. And confirmed to be secure. The 45 mm rods were placed with appropriate lordosis into the Tulip heads and secured with set screws. I did compress on the left at L5-S1 and final tightened all set screws. Final fluoroscopy was obtained to indicate correct position of the screws at L5 and S1 bilaterally. At this point I placed a drain tunneled outside through the a separate incision. The wound was then closed in layers. Patient was then turned over Anesthesia for extubation. Estimated Blood Loss 200 Complications No immediate complications Condition Stable Disposition PACU [facility] Billing Surgery - Charge Forward: Surgery Billing
[2025-08-26] MEDS: fentaNYL CITRATE INJ (*CRX) 100 MCG/2 ML VIAL 25 MCG IV PUSH ×4 (12:28→12:44)
--- NOTE | 2025-08-26 13:25 | PC.NURSE ---
This patient, Mitch Hammonds, was admitted to 3 [facility] Surg Room 312-01 at 1325. Patient/family oriented to hospital policies and general routines including ID bracelet, bed and alarms, visiting hours, pain management, procedures, bathroom and other care routines, personal items, smoking policy, room service/diet, and visiting hours. Information on how to activate the Rapid Response Team has been discussed. Patient/Family are encouraged to report perceived risks to care and to ask questions if they do not understand what they are told or what they should do.
[2025-08-26] MEDS: VITAMIN B COMPLEX CAPSULE 1 CAP PO (14:06)
[2025-08-26] MEDS: HYDROcodone/acetaminophen (*CRX) 10-325 MG TABLET 1 TAB PO ×3 (14:06→23:11)
[2025-08-26] MEDS: FERROUS SULFATE 325 MG TABLET PO (14:06)
[2025-08-26] MEDS: EMPAGLIFLOZIN 25 MG TABLET PO (14:08)
[2025-08-26] MEDS: CYCLOBENZAPRINE HCL 10 MG TABLET PO ×2 (14:40→23:12)
[2025-08-26] MEDS: MORPHINE SULFATE (*CRX) 4 MG/ML INJ 2 MG IV PUSH ×2 (17:08→21:31)
[2025-08-26] MEDS: TAMSULOSIN HCL 0.4 MG CAPSULE PO (21:21)
[2025-08-26] MEDS: DOCUSATE SODIUM 100 MG CAPSULE PO (21:21)
[2025-08-26] MEDS: AZELASTINE HCL NASAL 0.1% 137 MCG/SPR 30 ML BTL 1 SPRAY NASAL (21:23)
[2025-08-27 00:10] VITALS: BP 115/74; PULSE 76; RESP 14; TEMP 36.6; O2SAT 97
[2025-08-27] MEDS: MORPHINE SULFATE (*CRX) 4 MG/ML INJ 2 MG IV PUSH (01:23)
[2025-08-27] MEDS: HYDROcodone/acetaminophen (*CRX) 10-325 MG TABLET 1 TAB PO ×3 (02:50→10:51)
[2025-08-27 04:10] VITALS: BP 105/61; PULSE 83; RESP 16; TEMP 36.6; O2SAT 94
[2025-08-27 08:10] VITALS: BP 111/67; PULSE 90; RESP 16; TEMP 36.1; O2SAT 97
[2025-08-27] MEDS: FERROUS SULFATE 325 MG TABLET PO (08:32)
[2025-08-27] MEDS: DOCUSATE SODIUM 100 MG CAPSULE PO (08:32)
[2025-08-27] MEDS: PANTOPRAZOLE 40 MG TABLET PO (08:32)
[2025-08-27] MEDS: CHOLECALCIFEROL (VITAMIN D3) 25 MCG (1,000 UNITS) TABLET PO (08:32)
[2025-08-27] MEDS: VITAMIN B COMPLEX CAPSULE 1 CAP PO (08:32)
[2025-08-27] MEDS: EMPAGLIFLOZIN 25 MG TABLET PO (08:32)
[2025-08-27] MEDS: ceFAZolin 2 GM in SODIUM CHLORIDE 0.9% IV 50 ML 100 ML IVPB (08:33)
[2025-08-27] MEDS: AZELASTINE HCL NASAL 0.1% 137 MCG/SPR 30 ML BTL 1 SPRAY NASAL (08:34)
[2025-08-27] MEDS: FLUTICASONE PROPIONATE 0.05% NA SPR 16 GM BTL (*BKC) 2 SPRAY NASAL (08:35)
== END 2025-08-27 11:43 | disposition home or self-care (01) ==
LOC: ANHSURGERY 06:15 → ANH3MEDSUR 13:13
PROVIDERS: PCP Family Medicine; Visit Provider Neurological Surgery
PROC: (CPT 22612; principal; 2025-08-26 07:30)
DX: M47.816 Spondylosis without myelopathy or radiculopathy, lumbar region (principal); M48.061 Spinal stenosis, lumbar region without neurogenic claudication; D64.9 Anemia, unspecified; K21.9 Gastro-esophageal reflux disease without esophagitis; E11.22 Type 2 diabetes mellitus with diabetic chronic kidney disease; I12.9 Hypertensive chronic kidney disease with stage 1 through stage 4 chronic kidney disease, or unspecified chronic kidney disease; N18.30 Chronic kidney disease, stage 3 unspecified; N40.1 Benign prostatic hyperplasia with lower urinary tract symptoms; E29.1 Testicular hypofunction; M17.12 Unilateral primary osteoarthritis, left knee; N32.81 Overactive bladder; F41.9 Anxiety disorder, unspecified; F33.9 Major depressive disorder, recurrent, unspecified; G62.9 Polyneuropathy, unspecified; E66.9 Obesity, unspecified; Z68.33 Body mass index [BMI] 33.0-33.9, adult; Z79.82 Long term (current) use of aspirin; Z79.84 Long term (current) use of oral hypoglycemic drugs; Z98.890 Other specified postprocedural states; Z99.89 Dependence on other enabling machines and devices; Z87.891 Personal history of nicotine dependence; Z87.442 Personal history of urinary calculi; Z80.0 Family history of malignant neoplasm of digestive organs; Z82.49 Family history of ischemic heart disease and other diseases of the circulatory system
CPT/HCPCS: 22633; 22840; 22853; 20936; 61783; 36415; 86850; 86900; 86901; 97116; 97161; 97165; 97530; 99199; J0690; A9270; C1713; J1100; J1171; J1596; J2003; J2250; J2270; J2371; J2405; J2704; J3010; J7050; J7120

== ENCOUNTER 2025-09-27 14:40 | Outpatient (CLI) | payer MEDICARE, SELFPAY ==
--- NOTE | ~2025-09-27 | XR_ITS ---
XR lumbar spine 2-3V Indication: Z98.1 - Arthrodesis status Comparison: None Findings: Mild levoconvex scoliosis. Posterior fixation of L5 and S1 with disc prostheses, no fracture. Moderate loss of the remaining disc heights Soft tissues unremarkable Impression: No acute abnormality. Reviewed, dictated and finalized at location P. E ASSISTANT Impression: No acute abnormality.
== END 2025-09-27 14:41 | disposition home or self-care (01) ==
LOC: MICIMG 14:42
PROVIDERS: PCP Family Medicine; Visit Provider Neurological Surgery
DX: Z98.1 Arthrodesis status (principal)
CPT/HCPCS: 72100

== ENCOUNTER 2025-10-24 14:20 | Emergency (ER) | payer MEDICARE, SELFPAY ==
--- NOTE | ~2025-10-24 | CT_ITS ---
EXAMINATION: CTA chest PE abdomen pel DATE: 10/24/2025 18:23 INDICATION: Tachycardia. Positive d-dimer. TECHNIQUE: Computed tomography angiography (CTA) of the chest was performed with 100 mL Omnipaque-350 intravenous contrast timed to evaluate the pulmonary arteries. Coronal maximum intensity projection 3D-reconstructions were created by the technologist. Computed tomography (CT) of the abdomen and pelvis was performed with intravenous contrast. Automated exposure control and iterative reconstruction technique were employed. The dose-length product was 1400.97 mGy-cm. COMPARISON: None. FINDINGS: CTA chest: Suboptimal opacification of the peripheral pulmonary arteries. No evidence of central pulmonary emboli. No acute findings of thoracic aorta. Large hiatus hernia in the lower mediastinum. CT abdomen and pelvis: No focal lesions of liver and spleen. Gallbladder, pancreas, adrenal glands and the kidneys do not show acute findings. No evidence of small bowel obstruction. No evidence of abdominal aortic aneurysm. No inflammatory changes in the pelvis. Appendix is normal in size. Degenerative disc disease and postsurgical changes of lumbar spine. IMPRESSION: 1. No CT angiographic evidence of pulmonary embolus. Thoracic aorta shows no acute findings. 2. Large hiatus hernia. The no acute findings noted in the abdomen and pelvis. 3. Postoperative changes of lumbar spine with degenerative disc disease. Reviewed, dictated and finalized at location T. T HOST IMPRESSION: 1. No CT angiographic evidence of pulmonary embolus. Thoracic aorta shows no ac mary lou findings. 2. Large hiatus hernia. The no acute findings noted in the abdomen and pelvis. 3. Postoperative changes of lumbar spine with degenerative disc disease.
--- NOTE | ~2025-10-24 | XR_ITS ---
EXAMINATION: XR hip RT 2V w AP pelvis, 10/24/2025 16:38 SOFTWARE DEVELOPER CONSULTANT HISTORY: hip pain, no injury COMPARISON: No comparisons available. Findings: No acute fracture or malalignment. No significant degenerative changes. Soft tissues unremarkable. Impression: No acute fracture or malalignment. Reviewed, dictated and finalized at location P. WARE DEVELOPER CONSULTANT Impression: No acute fracture or malalignment.
--- NOTE | ~2025-10-24 | CT_ITS ---
EXAM/PROCEDURE: CT lumbar spine wo con HISTORY: lumbar pain COMPARISON: Plain films from September 27, 20[address] x-rays [address] CT exam from August 04, 2025 TECHNIQUE: Lumbar spine CT FINDINGS: Patient has undergone bilateral transpedicle posterior fusion with placement of intervertebral disc fusion device at L5-S1 as well as posterior decompression at L5. L5-S1 intervertebral disc space somewhat widened in comparison with the preoperative exam with placement of prosthetic device. Soft tissue fullness in the surgical bed extending posteriorly. No fracture or traumatic malalignment. No gross hardware failure fracture loosening. No large disc herniations or severe spinal canal stenosis. IMPRESSION: Postsurgical fusion with posterior decompression at L5-S1. The L5-S1 intervertebral disc space somewhat increased compared to the preoperative study, and there is moderately extensive soft tissue fullness in the surgical bed. If there is concern for possible infection, correlation with contrast-enhanced CT, and/or lumbar spine MRI may provide additional beneficial information. Reviewed, dictated and finalized at location A. FARMER IMPRESSION: Postsurgical fusion with posterior decompression at L5-S1. The L5-S 1 intervertebral disc space somewhat increased compared to the preoperative toney dy, and there is moderately extensive soft tissue fullness in the surgical bed. If there is concern for possible infection, correlation with contrast-enhanced CT, and/or lumbar spine MRI may provide additional beneficial information.
[2025-10-24 14:44] VITALS: BP 100/68; PULSE 110; RESP 16; TEMP 37.6; O2SAT 98
--- NOTE | 2025-10-24 15:56 | ED_ITS ---
HPI - General Adult General Chief complaint: Back Pain/Injury <DIPTI Barone - Last Filed: 10/24/25 16:26> Stated complaint: low back pain, had back surgery in August <DIPTI Barone - Last Filed: 10/24/25 16:26> Time Seen by Provider: 10/24/25 17:01 <DIPTI Barone - Last Filed: 10/24/25 16:26> Focused HPI: 70 year old male presenting with lower back pain that started about three days ago. He states the pain radiates into his groin and down his leg. He is also reporting subjective fever/chills Patient reports a recent lumbar fusion on 08/[address] Brown. Denies any recent history of trauma, numbness/tingling, saddle anesthesia, urinary/bowel incontinence/retention or chest pain/shortness of breath. States he took gabapentin, oxycodone, and Flexeril reporting no relief. GENERAL: No acute distress. HEAD: Normocephalic, atraumatic. CHEST: Clear to auscultation. ?No respiratory distress. Tachycardic. HEART: Regular rhythm, tachycardic. NEURO: ?Alert and oriented x3. EXTREMITIES: 5/5 LE strength and good ROM. Patient screened in triage and initial orders placed.? ?Additional care and disposition to be based upon?diagnostic testing and treatment. <DIPTI Barone - Last Filed: 10/24/25 16:26> History of Present Illness HPI narrative: agree with HPI <Cheol Busch MD - Last Filed: 10/24/25 21:27> Related Data Home medications: Home Medications ?Medication ?Instructions ?Recorded ?Confirmed ?Last Taken ?Type cholecalciferol (vitamin D3) 25 1,000 unit PO DAILY 09/30/25 08/22/25 History mcg (1,000 unit) capsule cetirizine 10 mg capsule (All Day 10 mg PO DAILY PRN A LLERGIES 04/26/22 09/30/25 08/25/25 History Allergy (cetirizine)) vitamin B complex (B 1 tablet PO DAILY 01/12/2411/30/24 08/22/25 History Complex-Vitamin B12 tablet) ferrous sulfate 325 mg (65 mg 325 mg PO DAILY 10/12/24 09/30/25 08/22/25 History iron) tablet (Feosol) <DIPTI Barone - Last Filed: 10/24/25 16:26> Allergies/adverse reactions: Allergies Allergy/AdvReac Type Severity Reaction Status Date / Time amoxicillin (From Augmentin) Allergy Intermediate Itching Verified 09/30/25 10:54 clavulanic acid (From Allergy Intermediate Itching Verified 09/30/25 10:54 Augmentin) cefuroxime AdvReac Severe NAUSEA, Verified 09/30/25 10:54 DIARRHEA metoclopramide (From Reglan) AdvReac Intermediate Agitated, Verified 09/30/25 10:54 Anxious <DIPTI Barone - Last Filed: 10/24/25 16:26> Review of Systems 2 Review of Systems: All systems reviewed & are unremarkable except as noted in HPI and below <Chelo Busch MD - Last Filed: 10/24/25 21:27> [facility] Past Medical History Medical History: Medical History Dysphagia, oropharyngeal Family history of colon cancer in father Change in bowel habits Diarrhea Acute pain of left knee Anemia, unspecified Arm paresthesia, right Burning sensation of feet Chronic GERD Chronic kidney disease, stage III (moderate) Dependence on other enabling machines and devices Dietary counseling and surveillance (10/16/17) Elevated blood-pressure reading without diagnosis of hypertension Enlarged prostate with lower urinary tract symptoms (LUTS) Essential hypertension Family history of colon cancer LONNY (generalized anxiety disorder) Hiatal hernia History of kidney stones Hy 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 Hyperlipidemia Hypogonadism in male Itching Left knee tendonitis Localized osteoarthritis of left knee Low TSH level Memory difficulties Mid back pain Mild episode of recurrent major depressive disorder Need for hepatitis C screening test Neuropathy involving both lower extremities Numbness OAB (overactive bladder) Obesity (BMI 30.0-34.9) Polyosteoarthritis, unspecified Post-nasal drip Pre-op exam Primary osteoarthritis of left knee Pure hypercholesterolemia Right-sided low back pain without sciatica Tendonitis of left rotator cuff URI, acute Varicose veins of both lower extremities Wellness examination <DIPTI Barone - Last Filed: 10/24/25 16:26> Surgical History Surgical History: Surgical History S/P lumbar fusion History of Aaron fundoplication History of left knee replacement <DIPTI Barone - Last Filed: 10/24/25 16:26> Family History Family History: Family History Mother Family history of muscular dystrophy Father Carcinoma of colon Sibling Family history of diabetes mellitus in first degree relative Family history of coronary artery disease Other Diabetes mellitus Hypertension <DIPTI Barone - Last Filed: 10/24/25 16:26> Social History Social History: Social History Smoking packs per day: 0 Smoking cigarettes per day: 0.0 Years smoked: 7 Smoking pack-years: 0.00 Smoking status: Never smoker Tobacco type: cigarettes Smoking end date: 11/17/77 Alcohol intake: current Drinks per week: 2 Substance use: never Substance use type: does not use Lack of Transportation: No Lack of Food: Never True Current Housing: I Have Housing Concerned About Future Housing: No Difficulty Paying Gas/Electric Bills: No Difficulty Paying for Meds: No Currently Unemployed: No Education: High School Diploma/GED Difficulty w/ Childcare or Family Care: No Living arrangements: with family Additional living arrangements comments: Spiritual care concerns: No <DIPTI Barone - Last Filed: 10/24/25 16:26> Exam 2 Narrative: EXAMINATION OF ORGAN SYSTEMS/BODY AREAS: Constitutional: Vital signs per nursing GENERAL: Complaining of back pain HEAD: Normal with no signs of head trauma. EYES: EOMI, conjunctiva normal ENT: Hearing grossly intact LUNGS: Nonlabored breathing. HEART: Regular rate and rhythm ABD: Soft, nontender to palpation EXT: Normal range of motion SKIN: No rashes or lesions. Well-healed incision site, no redness or tenderness to the back NEURO: Alert. No gross focal sensory or strength deficits. Ambulating with normal steady gait. No saddle anesthesia. PSYCH: Normal affect <Chelo Busch MD - Last Filed: 10/24/25 21:27> Course Vital Signs Vital signs: Vital Signs Temperature 99.7 F H 10/24/25 14:44 Pulse Rate 110 H 10/24/25 14:44 Respiratory Rate 16 10/24/25 14:44 Blood Pressure 100/68 10/24/25 14:44 Pulse Oximetry 98 10/24/25 14:44 Temperature 99.3 F 10/24/25 20:10 Pulse Rate 90 10/24/25 20:10 Respiratory Rate 20 10/24/25 20:10 Blood Pressure 108/74 10/24/25 20:10 Pulse Oximetry 98 10/24/25 20:10 <DIPTI Barone - Last Filed: 10/24/25 16:26> Vital Signs Temperature 99.7 F H 10/24/25 14:44 Pulse Rate 110 H 10/24/25 14:44 Respiratory Rate 16 10/24/25 14:44 Blood Pressure 100/68 10/24/25 14:44 Pulse Oximetry 98 10/24/25 14:44 Temperature 99.3 F 10/24/25 20:10 Pulse Rate 90 10/24/25 20:10 Respiratory Rate 20 10/24/25 20:10 Blood Pressure 108/74 10/24/25 20:10 Pulse Oximetry 98 10/24/25 20:10 <Chelo Busch MD - Last Filed: 10/24/25 21:27> MDM MDM Narrative Medical decision making narrative: ED COURSE AND MEDICAL DECISION MAKINM with acute on chronic back pain. Normal motor and sensory exam. Patient able to ambulate. No evidence of acute cord compression, osteomyelitis/discitis or cauda equina without saddle anesthesia, urinary retention/incontinence, numbness/tingling in lower extremities, fever, history of IV drug use, cancer or immunosuppression. Doubt AAA or aortic dissection without severe pain/discomfort or any neurovascular deficits. [Morphine 4 mg and diazepam 5mg PO] given for symptomatic relief. D-dimer was elevated, CTA chest, abdomen, pelvis obtained, no obvious signs of infection in his back, no PE. Normal white count and no lactic acidosis. On reevaluation, the symptoms are improved. Patient is able to rest more comfortably. Ambulating without difficulty. I did also call his neurosurgeon, discussed imaging, labs, and patient's exam to him, he felt this was unrelated to his recent spine surgery and patient can follow-up with him in the clinic in the next few days, patient already has an appointment. He is agreeable to this plan Patient is given return precautions and instructed to come back at any point in time for worsening pain, fevers, weakness, difficulty walking, urinary or fecal incontinence. Patient expressed understanding of instructions. <Chelo Busch MD - Last Filed: 10/24/25 21:27> Differential Diagnosis Differential Diagnosis: No evidence of acute cord compression, osteomyelitis/discitis or cauda equina without saddle anesthesia, urinary retention/incontinence, numbness/tingling in lower extremities, fever, history of IV drug use, cancer or immunosuppression. Doubt AAA or aortic dissection without severe pain/discomfort or any neurovascular deficits. <Chelo Busch MD - Last Filed: 10/24/25 21:27> Lab Data Result diagrams: 10/24/25 16:26 10/24/25 16:26 <DIPTI Barone - Last Filed: 10/24/25 16:26> Labs: Lab Results 10/24/25 10/24/25 10/24/25 Range/Units 16:26 17:57 19:40 WBC 9.0 (4.5-10.0) K/mm3 RBC 3.97 L (4.6-6.20) M/mm3 Hgb 11.8 L D (14.0-18.0) g/dL Hct 36.7 L (42.0-52.0) % MCV 92.4 (80-100) fl MCH 29.7 (26-34) pg MCHC 32.2 (32-36) g/dl RDW 13.0 (11.5-14.5) % Plt Count 317 D (150-375) k/mm3 MPV 8.9 (7.4-10.4) fl Immature Gran % (Auto) 0.4 (0-0.5) % Neut % (Auto) 70.5 (45.5-73.1) % Lymph % (Auto) 16.2 L (18.3-44.2) % [place] % (Auto) 9.0 H (2.6-8.5) % Eos % (Auto) 3.3 (0-4.4) % Baso % (Auto) 0.6 (0.2-1.2) % Lymph # (Auto) 1.46 (0.9-3.2) K/mm3 [place] # (Auto) 0.8 H (0.1-0.6) K/mm3 Eos # (Auto) 0.3 (0-0.3) K/mm3 Baso # (Auto) 0.1 (0.0-0.1) K/mm3 Abs Immat Gran (auto) 0.04 H (0.00-0.031) K/mm3 Absolute Neuts (auto) 6.4 (1.3-6.7) K/mm3 Absolute Nucleated RBC 0.000 (0.0-0.012) K/mm3 Nucleated RBC % 0.0 (0.0-0.2) % D-Dimer 2.55 H (<0.48) ug/mL Sodium 134 L (137-145) mmol/L Potassium 4.6 (3.4-5.0) mmol/L Chloride 101 (98-107) mmol/L Carbon Dioxide 25 (22-30) mmol/L Anion Gap 8 (4-12) mmol/L BUN 21 H (9-20) mg/dL Creatinine 1.50 H (0.7-1.3) mg/dL Estim Creat Clear Calc 49 ml/min Estimated GFR 47 L (59 - ) Glucose 98 (65-110) mg/dL Lactic Acid 0.8 (0.7-2.0) mmol/L Calcium 9.5 (8.4-10.2) mg/dL Total Bilirubin 0.7 (0.2-1.3) mg/dL AST 21 (17-59) U/L ALT 15 (6-50) U/L Alkaline Phosphatase 65 (38-126) U/L Total Protein 7.5 (6.3-8.2) g/dL Albumin 4.0 (3.5-5.1) g/dL Urine Color Yellow (Yellow) Urine Appearance Clear (Clear) Urine pH 5.5 (5.0-9.0) Ur Specific [place] 1.043 H (1.001-1.035) Urine Protein Trace (Negative) mg/dL Urine Glucose (UA) Negative (Negative) mg/dL Urine Ketones Negative (Negative) mg/dL Ur Blood (Man) Negative (Negative) Urine Nitrate Negative (Negative) Urine Bilirubin Negative (Negative) Urine Urobilinogen 1.0 (<2.0) mg/dL Add Ur Microanalysis Reviewed Leukocyte Esterase Rfl Negative (Negative) ANNEL/UL Urine RBC 0-2 (0-2) /hpf Urine WBC 0-5 (0-3) /hpf Ur Squamous Epith Cells None seen (Few) /hpf Urine Bacteria None seen /hpf Urine Casts 6-10 Urine Mucus Present /lpf <DIPTI Barone - Last Filed: 10/24/25 16:26> Lab Results 10/24/25 10/24/25 10/24/25 Range/Units 16:26 17:57 19:40 WBC 9.0 (4.5-10.0) K/mm3 RBC 3.97 L (4.6-6.20) M/mm3 Hgb 11.8 L D (14.0-18.0) g/dL Hct 36.7 L (42.0-52.0) % MCV 92.4 (80-100) fl MCH 29.7 (26-34) pg MCHC 32.2 (32-36) g/dl RDW 13.0 (11.5-14.5) % Plt Count 317 D (150-375) k/mm3 MPV 8.9 (7.4-10.4) fl Immature Gran % (Auto) 0.4 (0-0.5) % Neut % (Auto) 70.5 (45.5-73.1) % Lymph % (Auto) 16.2 L (18.3-44.2) % [place] % (Auto) 9.0 H (2.6-8.5) % Eos % (Auto) 3.3 (0-4.4) % Baso % (Auto) 0.6 (0.2-1.2) % Lymph # (Auto) 1.46 (0.9-3.2) K/mm3 [place] # (Auto) 0.8 H (0.1-0.6) K/mm3 Eos # (Auto) 0.3 (0-0.3) K/mm3 Baso # (Auto) 0.1 (0.0-0.1) K/mm3 Abs Immat Gran (auto) 0.04 H (0.00-0.031) K/mm3 Absolute Neuts (auto) 6.4 (1.3-6.7) K/mm3 Absolute Nucleated RBC 0.000 (0.0-0.012) K/mm3 Nucleated RBC % 0.0 (0.0-0.2) % D-Dimer 2.55 H (<0.48) ug/mL Sodium 134 L (137-145) mmol/L Potassium 4.6 (3.4-5.0) mmol/L Chloride 101 (98-107) mmol/L Carbon Dioxide 25 (22-30) mmol/L Anion Gap 8 (4-12) mmol/L BUN 21 H (9-20) mg/dL Creatinine 1.50 H (0.7-1.3) mg/dL Estim Creat Clear Calc 49 ml/min Estimated GFR 47 L (59 - ) Glucose 98 (65-110) mg/dL Lactic Acid 0.8 (0.7-2.0) mmol/L Calcium 9.5 (8.4-10.2) mg/dL Total Bilirubin 0.7 (0.2-1.3) mg/dL AST 21 (17-59) U/L ALT 15 (6-50) U/L Alkaline Phosphatase 65 (38-126) U/L Total Protein 7.5 (6.3-8.2) g/dL Albumin 4.0 (3.5-5.1) g/dL Urine Color Yellow (Yellow) Urine Appearance Clear (Clear) Urine pH 5.5 (5.0-9.0) Ur Specific [place] 1.043 H (1.001-1.035) Urine Protein Trace (Negative) mg/dL Urine Glucose (UA) Negative (Negative) mg/dL Urine Ketones Negative (Negative) mg/dL Ur Blood (Man) Negative (Negative) Urine Nitrate Negative (Negative) Urine Bilirubin Negative (Negative) Urine Urobilinogen 1.0 (<2.0) mg/dL Add Ur Microanalysis Reviewed Leukocyte Esterase Rfl Negative (Negative) ANNEL/UL Urine RBC 0-2 (0-2) /hpf Urine WBC 0-5 (0-3) /hpf Ur Squamous Epith Cells None seen (Few) /hpf Urine Bacteria None seen /hpf Urine Casts 6-10 Urine Mucus Present /lpf <Chelo Busch MD - Last Filed: 10/24/25 21:27> Imaging Data Radiologist's impression: ITS Impressions Lumbar Spine CT 10/24/25 16:39 IMPRESSION: Postsurgical fusion with posterior decompression at L5-S1. The L5-S1 intervertebral disc space somewhat increased compared to the preoperative study, and there is moderately extensive soft tissue fullness in the surgical bed. If there is concern for possible infection, correlation with contrast-enhanced CT, and/or lumbar spine MRI may provide additional beneficial information. Hip/Pelvis X-Ray 10/24/25 16:46 Impression: No acute fracture or malalignment. Chest/Abdomen/Pelvis CTA 10/24/25 18:29 IMPRESSION: 1. No CT angiographic evidence of pulmonary embolus. Thoracic aorta shows no acute findings. 2. Large hiatus hernia. The no acute findings noted in the abdomen and pelvis. 3. Postoperative changes of lumbar spine with degenerative disc disease. <DIPTI Barone - Last Filed: 10/24/25 16:26> ITS Impressions Lumbar Spine CT 10/24/25 16:39 IMPRESSION: Postsurgical fusion with posterior decompression at L5-S1. The L5-S1 intervertebral disc space somewhat increased compared to the preoperative study, and there is moderately extensive soft tissue fullness in the surgical bed. If there is concern for possible infection, correlation with contrast-enhanced CT, and/or lumbar spine MRI may provide additional beneficial information. Hip/Pelvis X-Ray 10/24/25 16:46 Impression: No acute fracture or malalignment. Chest/Abdomen/Pelvis CTA 10/24/25 18:29 IMPRESSION: 1. No CT angiographic evidence of pulmonary embolus. Thoracic aorta shows no acute findings. 2. Large hiatus hernia. The no acute findings noted in the abdomen and pelvis. 3. Postoperative changes of lumbar spine with degenerative disc disease. <Chelo Busch MD - Last Filed: 10/24/25 21:27> Discharge Plan Discharge Clinical Impression: Back pain <DIPTI Barone - Last Filed: 10/24/25 16:26> Patient Disposition: Home <DIPTI Barone - Last Filed: 10/24/25 16:26> Condition: Stable <DIPTI Barone - Last Filed: 10/24/25 16:26> Instructions: Acute Low Back Pain (ED) <DIPTI Barone - Last Filed: 10/24/25 16:26> Additional Instructions: Your labs and scans today do not show any obvious abnormality. Please follow-up with your neurosurgeon as scheduled on Friday, try the medications as prescribed. If you develop fevers, chills, numbness or weakness her legs, difficulty urinating or anything else concerning, please return to the ER immediately. <DIPTI Barone - Last Filed: 10/24/25 16:26> Patient Language: Bangladeshi <DIPTI Barone - Last Filed: 10/24/25 16:26> Prescriptions: New methylprednisolone [Medrol (Lonnie)] 4 mg tablets,dose pack See Rx Instructions .ROUTE .COMPLEX Qty: 21 0RF Rx Instructions: orally per package directions cyclobenzaprine 10 mg tablet 10 mg PO TID PRN (Reason: muscle spasm) Qty: 21 0RF No Action hydroxyzine HCl 50 mg tablet 50 mg PO QHS PRN (Reason: anxiety or insomnia) Qty: 90 0RF vitamin B complex [B Complex-Vitamin B12] Tablet 1 tablet PO DAILY All Day Allergy (cetirizine) 10 mg capsule 10 mg PO DAILY PRN (Reason: ALLERGIES) ferrous sulfate [Feosol] 325 mg (65 mg iron) tablet 325 mg PO DAILY tamsulosin 0.4 mg capsule 0.4 mg PO QHS Qty: 90 1RF Jardiance 25 mg tablet 25 mg PO DAILY Qty: 30 0RF gabapentin 300 mg capsule 300 mg PO TID Qty: 90 2RF sennosides [senna] 8.6 mg tablet 8.6 mg PO BID PRN (Reason: constipation) Qty: 30 2RF cholecalciferol (vitamin D3) 1,000 unit capsule 1,000 unit PO DAILY testosterone [AndroGel] 20.25 mg/1.25 gram (1.62 %) gel in metered-dose pump 3 pump TOPICAL DAILY Qty: 300 2RF Rx Instructions: apply 1 pump on one arm/shoulder and 2 pumps on opposite arm/shoulder over max area of EACH upper arm/shoulder aspirin 81 mg tablet,delayed release (DR/EC) 81 mg PO DAILY Qty: 30 0RF Patient Comments: HOLD for [address] Brown ketoconazole 2 % shampoo 1 applic topical 2XW Qty: 360 0RF clindamycin HCl [Cleocin HCl] 150 mg capsule 600 mg PO .COMPLEX Qty: 4 0RF Rx Instructions: 600 mg orally one hour prior to procedure; buspirone 10 mg tablet See Rx Instructions .ROUTE .COMPLEX Qty: 200 2RF Dose Instruction: TAKE 1 TABLET BY MOUTH TWICE DAILY Rx Instructions: TAKE 1 TABLET BY MOUTH TWICE DAILY azelastine 137 mcg (0.1 %) spray,non-aerosol 137 mcg intranasal Q12H Qty: 30 0RF Rx Instructions: administer into each nostril fluticasone propionate [Flonase Allergy Relief] 50 mcg/actuation spray,suspension 2 spray NASAL DAILY Qty: 16 2RF omeprazole 40 mg capsule,delayed release(DR/EC) 40 mg PO DAILY Qty: 90 2RF lisinopril 10 mg tablet See Rx Instructions .ROUTE .COMPLEX Qty: 50 2RF Dose Instruction: TAKE ONE-HALF TABLET BY MOUTH ONCE DAILY Rx Instructions: TAKE ONE-HALF TABLET BY MOUTH ONCE DAILY pravastatin 40 mg tablet See Rx Instructions .ROUTE .COMPLEX Qty: 100 2RF Dose Instruction: TAKE 1 TABLET BY MOUTH DAILY Rx Instructions: TAKE 1 TABLET BY MOUTH DAILY methylprednisolone [Medrol (Lonnie)] 4 mg tablets,dose pack See Rx Instructions PO PER PKG DIR Qty: 21 0RF Rx Instructions: PO PER PKG DIR for 6 days cyclobenzaprine 10 mg tablet See Rx Instructions .ROUTE .COMPLEX Qty: 21 0RF Dose Instruction: TAKE 1 TABLET BY MOUTH THREE TIMES DAILY NEEDED FOR MUSCLE SPASM Rx Instructions: TAKE 1 TABLET BY MOUTH THREE TIMES DAILY NEEDED FOR MUSCLE SPASM oxycodone 10 mg tablet 10 mg PO Q4H PRN (Reason: pain) Qty: 42 0RF venlafaxine 75 mg capsule,extended release 24hr See Rx Instructions .ROUTE .COMPLEX Qty: 90 2RF Dose Instruction: TAKE 1 CAPSULE BY MOUTH DAILY Rx Instructions: TAKE 1 CAPSULE BY MOUTH DAILY <DIPTI Barone - Last Filed: 10/24/25 16:26> Follow-up/Referrals: Yandel Klein MD [Primary Care Provider, Family Practice] Cal Brown MD [Physician, Neurosurgery] - 3 Days <DIPTI Barone - Last Filed: 10/24/25 16:26>
[2025-10-24 16:11] VITALS: BP 111/75; PULSE 118; RESP 20; O2SAT 98
--- NOTE | 2025-10-24 16:26 | ECG_ITS ---
Test Date: 2025-10-24 16:20:27 Measurements Intervals [place] Rate: 110 P: 20 [place]: 168 QRS: -29 QRSD: 126 T: 48 QT: 324 QTc: 438 Interpretive Statements SINUS TACHYCARDIA INTRAVENTRICULAR CONDUCTION DELAY POOR R WAVE PROGRESSION ABNORMAL ECG No previous ECG available for comparison Electronically Signed On 10-25-2025 06:23:10 DESK INTERVIEWER by Phuc Calles D.O.
[2025-10-24 16:36] LABS: Hematocrit 36.7 % (42.0-52.0); Hemoglobin 11.8 g/dL (14.0-18.0); Immature Granulocyte Percent A 0.4 % (0-0.5); Lymphocytes Absolute Auto 1.46 K/mm3 (0.9-3.2); Mean Corpuscular HGB Conc 32.2 g/dl (32-36); Mean Corpuscular Hemoglobin 29.7 pg (26-34); Mean Corpuscular Volume 92.4 fl (80-100); Nucleated Red Blood Cells Absolute Auto 0.000 K/mm3 (0.0-0.012); Nucleated Red Blood Cells Perc 0.0 % (0.0-0.2); Platelet Count Result 317 k/mm3 (150-375); Red Blood Count 3.97 M/mm3 (4.6-6.20); White Blood Count 9.0 K/mm3 (4.5-10.0)
[2025-10-24 16:58] LABS: Alanine Aminotransferase 15 U/L (6-50); Albumin Level 4.0 g/dL (3.5-5.1); Alkaline Phosphatase 65 U/L (38-126); Anion Gap 8 mmol/L (4-12); Aspartate Amino Transferase 21 U/L (17-59); Bilirubin,Total 0.7 mg/dL (0.2-1.3); Blood Urea Nitrogen 21 mg/dL (9-20); Calcium 9.5 mg/dL (8.4-10.2); Carbon Dioxide 25 mmol/L (22-30); Chloride 101 mmol/L (98-107); Estimated CRCL calculation 49 ml/min; Estimated Glomerular Filt Rate 47; Glucose 98 mg/dL (65-110); Potassium 4.6 mmol/L (3.4-5.0); Sodium 134 mmol/L (137-145); Total Protein 7.5 g/dL (6.3-8.2)
[2025-10-24 17:49] VITALS: BP 108/71; PULSE 102; RESP 16; TEMP 36.7; O2SAT 100
[2025-10-24] MEDS: MORPHINE SULFATE (*CRX) 4 MG/ML INJ IV PUSH (17:50)
[2025-10-24] MEDS: diazePAM INJ (*CRX) 10 MG/2 ML SYRINGE 5 MG IV PUSH (18:23)
[2025-10-24 20:06] LABS: Add Urine Microscopic? YES; Appearance Urine Clear (Clear); Glucose Urine UA Negative (Negative); Leukocyte Esterase Ur Negative LEU/UL (Negative); Need Manual Microscopic Reviewed; Nitrate Urine Negative (Negative); Specific Grav Ur 1.043 (1.001-1.035)
[2025-10-24 20:10] VITALS: BP 108/74; PULSE 90; RESP 20; TEMP 37.4; O2SAT 98
--- OUTSIDE RECORDS SUMMARY | 2025-10-24 20:12 | XMS_ITS | Data Portability ---
Author Organization [place] - [facility] [employer], Main Office Address [address] [place] [address] Care Team Providers Care Women[facility]S [facility] Care Nurse Practitioner Name Role Phone CLIFF SABILLON Primary Care Provider CLIFF SABILLON Referring Provider Assessment Encounter Date Assessment Date Assessment LastModified [...] treatment patient more half of this in deod-zt-eamq conversation Not available 04/02/2023 17:04:17 05/05/2023 05/05/2023 [...] patient more than half of this in akbs-ci-bswp conversation Not available 05/05/2023 14:37:44 Plan of Treatment Reminders Order Date Submit Date Provider Last Modified By Organization Details Last Modified Time Details Appointments None record ed. Lab None record ed. Referral None record ed. Procedures None record ed. Surgeries None record ed. Imaging XR, knee 023 05/05/20 23 [email or web address] [facility] [place], [facility], [place], [address], 3 16:34:37 XR, hand 023 04/02/20 23 [email or web address] [facility] [place], [address], [place], [address], 3 11:58:49 Medication Orders None record ed. Patient TargetsNo targets recorded. Patient InstructionsNo instructions recorded. Reason for Referral None Reported. Results Created Date Observation Date Name Description Value Unit Range Abnormal Flag Note LastModifiedBy Organization Detail LastModifiedTime 08/02/20 22 XR, shoul ric No observ ation record ed. [id number] [facility] [place] [address], [place], [address], 01/15/2023 13:32:14 04/02/20 23 XR, hand No observ ation record ed. [facility] [place] [address], [place], [address], 04/02/2023 17:01:32 05/05/20 23 XR, knee No observ ation record ed. [facility] [place] [address], [place], [address], 05/05/2023 14:36:07 Result Notes None recorded. Problems Name Problem SNOMED Code Status Onset Date Resolution Date Notes Provider Name and Address Organization Details Recorded Time Disorder of shoulder 417988870 Active Not Available [facility] 3 13:30:06 Radiothera py follow-up 584692072 Active Not Available [facility] 3 13:30:06 Osteoarthr itis 825187289 Active Not Available [facility] 3 13:30:06 Arthropath y of joint of hand 364472057 Active Not Available [facility] 3 13:30:06 Pain of left shoulder joint 0837677162211 9109 Active 2021 Not Available [facility] 3 13:30:06 Pain of left hand 2550805695690 03 Active 2022 NGOZI Jackson null, [facility] 3 15:03:17 Pain of right hand 8112276646877 09 Active 2022 NGOZI Jackson null, [facility] 3 15:03:27 Problem Notes None recorded. Procedures Surgical History Date Name Laterality Status Provider Name and Address Organization Details Recorded Time Knee Replacement completed Not Available [facility] 01/15/2023 13:29:35 Imaging Results None recorded. Procedure [...] Available Not Avai lable BD Regular Bevel [place] 22 gauge x 1 11/14 completed Not [...] Updated DateTime 04/02/2023 170.18 cm Bronwynbren Prince [facility] 04/02/2023 15:02:41 Date Recorded Body height Provider Name an d Address Organization Details Last Updated DateTime 05/05/2023 170.18 cm Bronwynbren Prince [facility] 05/05/2023 14:15:26 Date Recorded Body mass index (BMI) Body height Body weight Provider Name and Address Organization Details Last Updated DateTime 08/02/2022 35.9 kg/m2 170.18 cm 768692.65 g Not Available [facility] 01/15/2023 13:29:37 Social History None recorded. Functional Status None recorded. Mental Status None recorded. Family History Relationship Description Onset Age of this Age Resolved Age Notes LastModified by Organization Details LastModified Time Mother Heart disease [email or web address] [id number] Not available 01/15/2023 13:29:35 Sister Heart disease [email or web address] [id number] Not available 01/15/2023 13:29:35 Father Family history of malignant neoplasm [email or web address] Not available 2022 14:14:10 Medical History Condition Response BLINDNESS N KIDNEY STONES N MRSA N CARPAL TUNNEL SYNDROME N LUNG DISEASE/DISORDER N HISTORY OF DRUG ABUSE N RADIATION / CHEMOTHERAPY N COPD N SPORTS INJURY N ANKLE PAIN N BLOOD DISEASES N SCHIZOPHRENIA N SHINGLES N SHOULDER PAIN N BOWEL PROBLEMS N DEPRESSION (INCLUDING POST ) N STROKE/TIA N ULCERS N KNEE PAIN [...] FOOT PROBLEM N HEART VALVE DISORDERS N ALLERGIES/HAYFEVER N SOFT TISSUE INJURY N INFECTIOUS DISEASE N HEART ARRHYTHMIA N INSOMNIA N HIGH CHOLESTEROL / HYPERLIPIDEMIA N RHEUMATOID ARTHRITIS N EDEMA N CHRONIC PAIN SYNDROME N CAROTID BLOCKAGE N BACK / NECK PROBLEMS N HAVE YOU BEEN HOSPITALIZED OR SEEN IN [facility] ER IN THE PAST YEAR ? N BURSITIS N HERNIATED DISC N DIALYSIS N FIBROMYALGIA N OSTEOPOROSIS N ARTHRITIS Y NO SIGNIFICANT PAST MEDICAL HISTORY N PERIPHERAL NEUROPATHY N DIABETES, TYPE N HEARTBURN / REFLUX N HEPATITIS / LIVER DISEASE N GOUT N ALZHEIMER'S DISEASE N SLEEP DISORDER N HERPES N HEADACHES/MIGRAINES N SEIZURES/EPILEPSY N VASCULAR DISEASE N Blood Disorder N HIP PAIN N DIZZINESS N HEAD TRAUMA OR INJURY N HEART DISEASE/HEART PROBLEMS N MULTIPLE SCLEROSIS N CANCER: SPECIFY N CARDIAC ARRHYTHMIA N ANESTHESIA COMPLICATIONS N ATRIAL FIBRILLATION N AUTOIMMUNE DISEASE N Past Encounters Encounter ID Performer Location Encounter Start Date Encounter Closed Date Diagnosis/Indication Diagnosis SNOMED-CT Code Diagnosis ICD10 Code Diagnosis IMO Codes Diagnosis Note [id number] Perfecto Garibay MD [facility] [place] [address] [place] [address] 08/02/2022 00:00:00 08/02/2022 13:13:05 [id number] Perfecto Garibay MD [facility] [place] [address] [place] [address] 04/02/2023 14:59:56 04/03/2023 11:58:49 Pain of right hand 8343150754 32359 M79.641 [id number] Perfecto Garibay MD [facility] [place] [address] [place] [address] 05/05/2023 14:11:31 05/05/2023 14:38:02 History of left total knee replacement 0597475195 219376 Z96.652 Health Concerns Section Related Observation LastModified by Organization Detai ls LastModified Time None Recorded Concern Status LastModified by Organization Details LastModified Time None Recorded Advance Directives Directive None Recorded Payers Insurance Date Sequence Insurance Name Policy Number Policy Morelos Covered Member ID Morelos Member ID Guarantor Name 05/06/2023 1 [facility] (MEDICARE REPLACEMENT/A DVANTAGE - HMO) [id number] Mitch Hammonds [id number] Mitch Hammonds
--- OUTSIDE RECORDS SUMMARY | 2025-10-24 20:12 | XMS_ITS | Clinical Summary ---
Author Organization [facility] [employer] Address [address] [place] [address] Care Team Providers Care Mobile Device Developer Name Role Phone Yandel Klein MD Primary Care Provider [phone] Source Comments [facility] [employer],non-owned Affiliates and Associated Physician Practices is amultiple site organization consisting of ambulatory clinics and hospital sitesin [place], [place], [place] and [place]. This disclosure is being madepursuant to the Care Everywhere program and may not contain all information available regarding this patient. Last updated 18.[employer] Allergies Active Allergy Reactions Criticality Noted Date [...] CALENDAR YEAR 2024 COVID-19 VACCINE (1 - 2024-2 6 season) 2025 INFLUENZA VACCINE (#1) 2025 Respiratory [...] patient's age to complete this topic Insurance [id number] MANAGED MEDICARE ADV Member Subscriber Plan / Payer (Ef fective 2023-Present) Name:Yoni Siegel Relation to Subscriber:Self Name:Yoni Siegel Payer ID:[id number] (NAIC) Type:Medicare-Managed Care Address: [place] [id number] MANAGED MEDICARE ADV MANAGED MEDICARE ADV MANAGED MEDICARE ADV Care Teams Mobile Device Developer Relationship Specialty Start Date End Date Yandel Klein MD [address] [place] [id number] PCP - General Family Medicine 03/10/17
--- OUTSIDE RECORDS SUMMARY | 2025-10-24 20:12 | XMS_ITS | Clinical Summary ---
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 Does NOT exclude the possibility of recent exposure to HCV. Current interpretive data was last revised on 22 HepBsAg Nonreactive Nonreactive [facility] Blood 07/19/2023 12:1 2 AM CDT 07/19/2023 12:25 AM CDT us Tonya Mcgovern MD LAB MICROBIOLOGY - GENERAL OR DERABLES Final Result [facility] Department [place] [address] from Last 3 Months or Most Recently Relevant to Health Maintenance Insurance MEDICARE ADVANTAGE MEDICARE ADVANTAGE [facility] MEDICARE ADVANTAGE Advance Directives For more information, please contact: [phone] * Full Code (Latest Code Status on File) Date Activated Date Inactivated Comments 07/19/2023 2:51 AM 07/20/2023 6:39 PM Care Teams Spot Checker Relationship Specialty Start Date End Date Yandel Klein MD [address] [facility] [address] [place] [address] PCP - General Family Medicine 07/18/23
== END 2025-10-24 20:19 | disposition home or self-care (01) ==
PROVIDERS: Emergency Provider Emergency Medicine; PCP Family Medicine
DX: M54.50 Low back pain, unspecified (principal); R00.0 Tachycardia, unspecified; D64.9 Anemia, unspecified; I12.9 Hypertensive chronic kidney disease with stage 1 through stage 4 chronic kidney disease, or unspecified chronic kidney disease; N18.30 Chronic kidney disease, stage 3 unspecified; K21.9 Gastro-esophageal reflux disease without esophagitis; F41.9 Anxiety disorder, unspecified; Z87.442 Personal history of urinary calculi; E78.5 Hyperlipidemia, unspecified; M19.90 Unspecified osteoarthritis, unspecified site
CPT/HCPCS: 36415; 71275; 72131; 73502; 74177; 80053; 81001; 83605; 85025; 85380; 93005; 96374; 96375; 99284; J2270; J3360; Q9967

== ENCOUNTER 2025-11-15 17:16 | Outpatient (CLI) | payer MEDICARE, SELFPAY ==
--- OUTSIDE RECORDS SUMMARY | 2025-11-15 17:19 | XMS_ITS | Clinical Summary ---
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 Does NOT exclude the possibility of recent exposure to HCV. Current interpretive data was last revised on 22 HepBsAg Nonreactive Nonreactive [facility] Blood 07/19/2023 12:1 2 AM CDT 07/19/2023 12:25 AM CDT us Tonya Mcgovern MD LAB MICROBIOLOGY - GENERAL OR DERABLES Final Result [facility] Department [place] [address] from Last 3 Months or Most Recently Relevant to Health Maintenance Insurance MEDICARE ADVANTAGE [facility] MEDICARE Address: [address] [place] [address] MEDICARE ADVANTAGE [facility] MEDICARE Address: [address] [address] [place] [address] [facility] MEDICARE ADVANTAGE [facility] MEDICARE Address: [address] [address] [place] [address] Advance Directives For more information, please contact: [phone] * Full Code (Latest Code Status on File) Date Activated Date Inactivated Comments 07/19/2023 2:51 AM 07/20/2023 6:39 PM Care Teams Software Sales Relationship Specialty Start Date End Date Yandel Klein MD [address] [facility] [address] [place] [address] PCP - General Family Medicine 07/18/23
--- OUTSIDE RECORDS SUMMARY | 2025-11-15 17:19 | XMS_ITS | Data Portability ---
Author Organization [place] - [facility] [employer], Main Office Address [address] [place] [address] Care Team Providers Care Rug Clipper Name Role Phone CLIFF SABILLON Primary Care [...] treatment patient more half of this in kxxt-oh-xjya conversation Not available 04/02/2023 17:04:17 05/05/2023 05/05/2023 [...] patient more than half of this in rjaz-gn-qzvn conversation Not available 05/05/2023 14:37:44 Plan of Treatment Reminders Order Date Submit Date Provider Last Modified By Organization Details Last Modified Time Details Appointments None record ed. Lab None record ed. Referral None record ed. Procedures None record ed. Surgeries None record ed. Imaging XR, knee 023 05/05/20 23 [email or web address] [facility] [place], [facility], [place], [address], 3 16:34:37 XR, hand 023 04/02/20 23 [email or web address] [facility] [place], [address], [place], [address], 3 11:58:49 Medication Orders None record ed. Patient TargetsNo targets recorded. Patient InstructionsNo instructions recorded. Reason for Referral None Reported. Results Created Date Observation Date Name Description Value Unit Range Abnormal Flag Note LastModifiedBy Organization Detail LastModifiedTime 08/02/20 22 XR, shoul ric No observ ation record ed. [id number] [facility] [place] [address], [place], [address], 01/15/2023 13:32:14 04/02/20 23 XR, hand No observ ation record ed. [facility] [place] [address], [place], [address], 04/02/2023 17:01:32 05/05/20 23 XR, knee No observ ation record ed. [facility] [place] [address], [place], [address], 05/05/2023 14:36:07 Result Notes None recorded. Problems Name Problem SNOMED Code Status Onset Date Resolution Date Notes Provider Name and Address Organization Details Recorded Time Disorder of shoulder 309649662 Active Not Available [facility] 3 13:30:06 Radiothera py follow-up 208464921 Active Not Available [facility] [place] [facility] 3 13:30:06 Osteoarthr itis 870263455 Active Not Available [facility] 3 13:30:06 Arthropath y of joint of hand 643210405 Active Not Available [facility] [place] [facility] 3 13:30:06 Pain of left shoulder joint 5049056847398 9109 Active 2021 Not Available [facility] 3 13:30:06 Pain of left hand 0335397697373 03 Active 2022 NGOZI Jackson null, [facility] 3 15:03:17 Pain of right hand 7729163783582 09 Active 2022 NGOZI Jackson null, [facility] 3 15:03:27 Problem Notes None recorded. Procedures Surgical History Date Name Laterality Status Provider Name and Address Organization Details Recorded Time Knee Replacement completed Not Available [facility] 01/15/2023 13:29:35 Imaging Results None recorded. Procedure [...] Available Not Avai lable BD Regular Bevel [place] 22 gauge x 1 11/14 completed Not [...] Updated DateTime 04/02/2023 170.18 cm Bronwynbren Prince [facility] 04/02/2023 15:02:41 Date Recorded Body height Provider Name an d Address Organization Details Last Updated DateTime 05/05/2023 170.18 cm Bronwynbren Prince [facility] [employer] [facility] 05/05/2023 14:15:26 Date Recorded Body mass index (BMI) Body height Body weight Provider Name and Address Organization Details Last Updated DateTime 08/02/2022 35.9 kg/m2 170.18 cm 199571.65 g Not Available [facility] 01/15/2023 13:29:37 Social History None recorded. Functional Status None recorded. Mental Status None recorded. Family History Relationship Description Onset Age of this Age Resolved Age Notes LastModified by Organization Details LastModified Time Mother Heart disease [email or web address].623 [id number] Not available 01/15/2023 13:29:35 Sister Heart disease MIGRATION.844 [id number] Not available 01/15/2023 13:29:35 Father Family history of malignant neoplasm [email or web address] Not available 2022 14:14:10 Medical History Condition Response BLINDNESS N KIDNEY STONES N MRSA N CARPAL TUNNEL SYNDROME N LUNG DISEASE/DISORDER N HISTORY OF DRUG ABUSE N COPD N RADIATION / CHEMOTHERAPY N SPORTS INJURY N ANKLE PAIN N BLOOD DISEASES N SCHIZOPHRENIA N SHINGLES N BOWEL PROBLEMS N SHOULDER PAIN N DEPRESSION (INCLUDING POST ) N STROKE/TIA [...] N NEUROPATHY N AIDS/HIV N FRACTURES N ELBOW PAIN N HYPERTENSION Y TOURETTE'S N ANXIETY DISORDER N Metal allergy N BLOOD TRANSFUSION N ANEMIA/BLOOD DISORDER N [...] HAVE YOU BEEN HOSPITALIZED OR SEEN IN [facility] ER IN THE PAST YEAR ? [...] ICD10 Code Diagnosis IMO Codes Diagnosis Note [id number] Perfecto Garibay MD Sand[facility] [place] [address] [place] [address] 08/02/2022 00:00:00 08/02/2022 13:13:05 [id number] Perfecto Garibay MD [facility] [place] [address] [place] [address] 04/02/2023 14:59:56 04/03/2023 11:58:49 Pain of right hand 2774590888 88874 M79.641 [id number] Perfecto Garibay MD [facility] [place] [address] [facility] [address] [place] [address] 05/05/2023 14:11:31 05/05/2023 14:38:02 History of left total knee replacement 1733006645 586607 Z96.652 Health Concerns Section Related Observation LastModified by Organization Detai ls LastModified Time None Recorded Concern Status LastModified by Organization Details LastModified Time None Recorded Advance Directives Directive None Recorded Payers Insurance Date Sequence Insurance Name Policy Number Policy Morelos Covered Member ID Morelos Member ID Guarantor Name 05/06/2023 1 [facility] (MEDICARE REPLACEMENT/A DVANTAGE - HMO) [id number] Mitch Hammonds [id number] Mitch Hammonds
[2025-11-15 17:37] LABS: Hematocrit 37.5 % (42.0-52.0); Hemoglobin 12.1 g/dL (14.0-18.0); Immature Granulocyte Percent A 0.5 % (0-0.5); Lymphocytes Absolute Auto 1.02 K/mm3 (0.9-3.2); Mean Corpuscular HGB Conc 32.3 g/dl (32-36); Mean Corpuscular Hemoglobin 29.2 pg (26-34); Mean Corpuscular Volume 90.4 fl (80-100); Nucleated Red Blood Cells Absolute Auto 0.000 K/mm3 (0.0-0.012); Nucleated Red Blood Cells Perc 0.0 % (0.0-0.2); Platelet Count Result 313 k/mm3 (150-375); Red Blood Count 4.15 M/mm3 (4.6-6.20); White Blood Count 8.6 K/mm3 (4.5-10.0)
[2025-11-15 17:48] LABS: Alanine Aminotransferase 15 U/L (6-50); Albumin Level 4.4 g/dL (3.5-5.1); Alkaline Phosphatase 86 U/L (38-126); Anion Gap 10 mmol/L (4-12); Aspartate Amino Transferase 23 U/L (17-59); Bilirubin,Total 0.9 mg/dL (0.2-1.3); Blood Urea Nitrogen 22 mg/dL (9-20); Calcium 10.2 mg/dL (8.4-10.2); Carbon Dioxide 26 mmol/L (22-30); Chloride 101 mmol/L (98-107); Estimated Glomerular Filt Rate 44; Glucose 104 mg/dL (65-110); Potassium 4.3 mmol/L (3.4-5.0); Sodium 137 mmol/L (137-145); Total Protein 8.4 g/dL (6.3-8.2)
[2025-11-15 18:24] LABS: Thyroid Stimulating Hormone 1.120 uIU/mL (0.465-4.680)
== END 2025-11-15 17:17 | disposition home or self-care (01) ==
PROVIDERS: PCP Family Medicine; Visit Provider Physician Assistant
DX: N18.9 Chronic kidney disease, unspecified (principal); D63.1 Anemia in chronic kidney disease; D64.9 Anemia, unspecified; E86.0 Dehydration; R68.83 Chills (without fever)
CPT/HCPCS: 36415; 80053; 84443; 85025